=== PATIENT | male | born 1950 | race Caucasian/White ===

== ENCOUNTER → 2017-11-02 | Outpatient (CLI) | payer MEDICARE ==
[2017-11-02 11:14] LABS: Basophils # (A) 0.1 k/uL (0-0.2); Basophils % (A) 1 %; Eosinophils # (A) 0.2 k/uL (0-0.7); Eosinophils % (A) 3 %; HCT 48.1 % (39.0-53.0); HGB 16.2 gm/dL (13.0-17.5); Lymphocytes # (A) 1.4 k/uL (1.0-4.8); Lymphocytes % (A) 20 %; MCH 29.2 pg (25.0-35.0); MCHC 33.7 g/dL (31.0-37.0); MCV 86.5 fL (80.0-100.0); Mean Platelet Volume 6.5; Monocytes # (A) 0.5 k/uL (0-1.0); Monocytes % (A) 7 %; Neutrophils # (A) 4.5 k/uL (1.3-7.7); Neutrophils % (A) 66 %; Platelet Count 215 k/uL (150-450); RBC 5.57 m/uL (4.30-5.90); RDW 13.3 % (11.5-15.5); WBC 6.8 k/uL (3.8-10.6)
[2017-11-02 11:27] LABS: Potassium 5.2 mmol/L (3.5-5.1)
[2017-11-02 11:38] LABS: Appearance,Urine Clear (Clear); Bilirubin,Urine Negative (Negative); Blood,Urine Negative (Negative); Color,Urine Light Yellow; Glucose,Urine (UA) Negative (Negative); Ketones,Urine Negative (Negative); Leukocyte Esterase,Urine Negative (Negative); Nitrite,Urine Negative (Negative); Protein,Urine Negative (Negative); Specific Gravity,Urine 1.011 (1.001-1.035); Urobilinogen,Urine <2.0 mg/dL (<2.0)
[2017-11-02 12:11] LABS: INR 1.1 (<1.2); Partial Thromboplastin Time 22.5 sec (22.0-30.0); Prothrombin Time 10.4 sec (9.0-12.0)
== END | disposition home or self-care (01) ==
LOC: LABPAT 09:56
PROVIDERS: ATTEND Surgery
DX: Z01.812 Encounter for preprocedural laboratory examination (principal); Z51.81 Encounter for therapeutic drug level monitoring; Z79.01 Long term (current) use of anticoagulants; M79.605 Pain in left leg
CPT/HCPCS: 36415; 80051; 81003; 82947; 85025; 85610; 85730

== ENCOUNTER → 2017-11-07 | Day surgery (SDC) | payer MEDICARE ==
[2017-11-02 17:07] VITALS: BMI 27.4
[~2017-11-07] MED LIST: ASPIRIN 325 MG TAB PO STA; HYDROcodone/APAP 5-325MG 1 EACH TAB PO PRN; IODIXANOL 320 MG/ML 100 ML INTRAARTER ONE; LIDOCAINE 2% INJ 20 MG/ML SQ ONE; MIDAZOLAM 2 MG/2 ML VIAL IVP ONE; SODIUM CHLORIDE 0.9% 1,000 ML in EMPTY BAG 1 BAG IV ONE; ZOLPIDEM 5 MG TAB PO PRN; fentaNYL (PF) 50 MCG/ML 2 ML AMP IVP ONE
[2017-11-07 08:47] VITALS: TEMP 97.8
[2017-11-07 11:45] VITALS: RESP 16
--- NOTE | 2017-11-07 12:15 | P.OP ---
Date of Procedure: 11/07/17 Preoperative Diagnosis: Disabiling claudication with rest pain CLI Postoperative Diagnosis: CLI Occluded Left limb of aortobifemoral graft Occluded Fem-fem bypass graft [employer] of Right SFA with reconstitution at above knee popliteal artery [employer]ENT of Left SFA, popliteal, anterior tibial and peroneal arteries Procedure(s) Performed: Aortogram with bilateral lower extremity runoffs via left brachial artery under ultrasound guidance Implants: none Anesthesia: local Surgeon: Yuriy Whalen Estimated Blood Loss (ml): 5 Pathology: none sent Condition: stable Disposition: same day Indications for Procedure: 67-year-old gentleman who presented originally to the office with left lower extremity pain, numbness. He does have a history of aortobifemoral bypass as well as a femoral to femoral artery bypass secondary to occlusion of his left aortobifemoral limb. He underwent arterial Doppler with ABIs which measured 0.29 on the left lower extremity. He presents today for aortogram with bilateral lower extremity runoffs via his left brachial artery in order to further delineate his arterial disease for future procedure. Operative Findings: Aorta: Occluded just distal to the renal arteries with previous aortobifemoral bypass graft in place. The left iliac limb of the aortobifemoral bypass graft is occluded. Iliac: Bilateral common iliac, internal and external iliac arteries are occluded. Femoral: Right common femoral, deep femoral arteries are patent with moderate at the stenotic disease. The SFA on the right is occluded at the takeoff and reconstitutes at the above-knee popliteal just distal to Mahesh's canal. The left common femoral, superficial femoral arteries are occluded. There is scant flow within the profundus from collateralization. Popliteal: Right popliteal artery is patent. Left popliteal artery is occluded to the below-knee TPT. TPT: Right lower extremity has patent TPT and three-vessel runoff with 2 vessels to the ankle. All vessels are atherosclerotic. Left TPT is occluded as well as the anterior tibial and peroneal vessels. There is scant flow noted in the posterior tibial artery to the ankle. Description of Procedure: After written informed consent was obtained the patient all risks benefits, patient prescribed patient is brought to the Resolution Manager laid in a supine position with his left arm outstretched on an armboard. The area of the left arm was prepped and draped in usual sterile fashion. Utilizing ultrasound the brachial artery was visualized and shown to be patent without any significant disease. Multipurpose needle and Seldinger technique was then used to place a 5-Romanian sheath in normal fashion. 035 Glidewire was then placed into the descending aorta followed by a pigtail catheter. Pigtail catheter was then utilized a 4 aortogram as well as bilateral lower extremity runoffs. All guidewires and catheters were then removed sheath was removed and pressure was placed for hemostasis. Hemostasis was ensured. The area was cleansed and dressings were placed patient on procedure well sent to PACU for recovery. Plan - Discharge Summary Discharge Rx Participant: Yes New Discharge Prescriptions: No Action Nitroglycerin Sl Tabs [Nitrostat] 0.4 mg SUBLINGUAL Q5M PRN PRN Reason: Chest Pain Losartan Potassium 100 mg PO DAILY Clopidogrel [Plavix] 75 mg PO DAILY Spironolactone [Aldactone] 25 mg PO DAILY Metoprolol Tartrate [Lopressor] 50 mg PO BID Aspirin 81 mg PO HS Discharge Medication List Aspirin 81 mg PO HS 11/27/15 [History] Clopidogrel [Plavix] 75 mg PO DAILY 11/27/15 [History] Losartan Potassium 100 mg PO DAILY 11/27/15 [History] Metoprolol Tartrate [Lopressor] 50 mg PO BID 11/27/15 [History] Nitroglycerin Sl Tabs [Nitrostat] 0.4 mg SUBLINGUAL Q5M PRN 11/27/15 [History] Spironolactone [Aldactone] 25 mg PO DAILY 11/27/15 [History] Follow up Appointment(s)/Referral(s): Yuriy Whalen DO [STAFF PHYSICIAN] - 1 Week Discharge Disposition: HOME SELF-CARE
--- NOTE | 2017-11-07 14:44 | IR ---
EXAMINATION TYPE: IR angio abdominal w runoff DATE OF EXAM: 11/07/2017 CLINICAL HISTORY: Left foot pain. TECHNIQUE: Fluoroscopy. COMPARISON: None. FINDINGS: Fluoroscopic guidance was provided during abdominal angiogram with lower extremity runoff procedure performed by Dr. Whalen. A total of 1.5 minutes of fluoroscopic time was utilized during the procedure and 6 exposure images are acquired. Images acquired show access via right groin with s ubsequent abdominal angiogram and lower extremity runoff performed. Please refer to procedure note fo r further details as I was not present nor performed procedure. IMPRESSION: As Above.
[2017-11-07 15:52] VITALS: BP 142/74; PULSE 62
== END | disposition home or self-care (01) ==
LOC: CATHCVL 08:26
PROVIDERS: ATTEND Surgery
DX: I70.422 Atherosclerosis of autologous vein bypass graft(s) of the extremities with rest pain, left leg (principal); I70.0 Atherosclerosis of aorta; I70.223 Atherosclerosis of native arteries of extremities with rest pain, bilateral legs; Z87.891 Personal history of nicotine dependence; I25.10 Atherosclerotic heart disease of native coronary artery without angina pectoris; I11.9 Hypertensive heart disease without heart failure; E78.5 Hyperlipidemia, unspecified; Z79.02 Long term (current) use of antithrombotics/antiplatelets; Z79.82 Long term (current) use of aspirin; Z79.899 Other long term (current) drug therapy; Z88.8 Allergy status to other drugs, medicaments and biological substances
CPT/HCPCS: 36200; 75625; 75716; C1769 ×5; C1894; J2001; J2250; Q9967; J3010; 86850; 86900; 86901

== ENCOUNTER → 2017-11-15 | Outpatient (CLI) | payer MEDICARE ==
[2017-11-15 16:48] LABS: Basophils # (A) 0.1 k/uL (0-0.2); Basophils % (A) 1 %; Eosinophils # (A) 0.3 k/uL (0-0.7); Eosinophils % (A) 4 %; HCT 47.4 % (39.0-53.0); HGB 15.8 gm/dL (13.0-17.5); Lymphocytes # (A) 2.2 k/uL (1.0-4.8); Lymphocytes % (A) 32 %; MCH 29.1 pg (25.0-35.0); MCHC 33.3 g/dL (31.0-37.0); MCV 87.3 fL (80.0-100.0); Mean Platelet Volume 7.3; Monocytes # (A) 0.6 k/uL (0-1.0); Monocytes % (A) 9 %; Neutrophils # (A) 3.5 k/uL (1.3-7.7); Neutrophils % (A) 51 %; Platelet Count 235 k/uL (150-450); RBC 5.43 m/uL (4.30-5.90); RDW 13.7 % (11.5-15.5); WBC 6.9 k/uL (3.8-10.6)
[2017-11-15 16:49] LABS: Appearance,Urine Clear (Clear); Bilirubin,Urine Negative (Negative); Blood,Urine Negative (Negative); Color,Urine Light Yellow; Glucose,Urine (UA) Negative (Negative); Ketones,Urine Negative (Negative); Leukocyte Esterase,Urine Negative (Negative); Nitrite,Urine Negative (Negative); PH, Urine 6.5 (5.0-8.0); Protein,Urine Negative (Negative); Specific Gravity,Urine 1.008 (1.001-1.035); Urobilinogen,Urine <2.0 mg/dL (<2.0)
[2017-11-15 16:56] LABS: INR 1.1 (<1.2); Partial Thromboplastin Time 22.4 sec (22.0-30.0); Prothrombin Time 10.5 sec (9.0-12.0)
[2017-11-15 16:59] LABS: Potassium 5.2 mmol/L (3.5-5.1)
== END | disposition home or self-care (01) ==
LOC: LABWHC1 16:31
PROVIDERS: ATTEND Surgery
DX: Z01.812 Encounter for preprocedural laboratory examination (principal); I70.402 Unspecified atherosclerosis of autologous vein bypass graft(s) of the extremities, left leg
CPT/HCPCS: 36415; 80051; 81003; 82565; 84520; 85025; 85610; 85730; 86850; 86900; 86901

== ENCOUNTER 2017-11-21 05:41 | Inpatient (IN) | payer MEDICARE ==
[2017-11-16 11:31] VITALS: BMI 27.4
[~2017-11-21 05:41] MED LIST changes: -ASPIRIN 325 MG TAB PO STA; +DEXAMETHASONE SOD PHOSPHATE 10 MG/ML 1 ML VIAL IV ONE; -HYDROcodone/APAP 5-325MG 1 EACH TAB PO PRN; +HYDROmorphone 0.5 MG/0.5 ML SYRINGE IVP PRN; -IODIXANOL 320 MG/ML 100 ML INTRAARTER ONE; +LIDOCAINE 1% 20 ML VIAL (10MG/ML) FOR IV START INTRADERMA PRN; -LIDOCAINE 2% INJ 20 MG/ML SQ ONE; +MIDAZOLAM 2 MG/2 ML VIAL IV PRN; -MIDAZOLAM 2 MG/2 ML VIAL IVP ONE; +MORPHINE SULFATE 2 MG/ML SYRINGE IV PRN; +ONDANSETRON ODT 4 MG TAB PO ONE; +SCOPOLAMINE 1.5MG/72HR PATCH TRANSDERM ONE; -SODIUM CHLORIDE 0.9% 1,000 ML in EMPTY BAG 1 BAG IV ONE; -ZOLPIDEM 5 MG TAB PO PRN; +ceFAZolin IN SWFI 2 GM/20 ML SYRINGE IVP ONE; -fentaNYL (PF) 50 MCG/ML 2 ML AMP IVP ONE
[2017-11-21] MEDS: LACTATED RINGERS 1,000 ML IV SCH ×2 (06:57→13:57)
[2017-11-21] MEDS ORDERED: SODIUM CHLORIDE 0.9% 500 ML with HEPARIN SODIUM,PORCINE 5,000 UNIT IV ONE ×2 (08:17)
[2017-11-21] MEDS ORDERED: LACTATED RINGERS 1,000 ML IV ONE ×2 (09:00)
[2017-11-21] MEDS ORDERED: GELATIN SPONGE,ABSORB (LARGE) 1 EACH SPONGE MISCELLANE ONE ×2 (10:53→11:15)
[2017-11-21] MEDS ORDERED: THROMBIN (BOVINE) 5,000 UNIT VIAL MISCELLANE ONE ×2 (10:53→11:15)
[2017-11-21] MEDS ORDERED: HYDROcodone/APAP 5-325MG 1 EACH TAB PO PRN (11:41)
[2017-11-21] MEDS ORDERED: ONDANSETRON 4 MG/2 ML VIAL IVP PRN (11:41)
[2017-11-21] MEDS ORDERED: MORPHINE SULFATE 4 MG/ML SYRINGE IVP PRN (11:41)
[2017-11-21] MEDS: DEXTROSE 5%-0.45% NACL 1,000 ML IV SCH (17:10)
[2017-11-21] MEDS ORDERED: NITROGLYCERIN SL TABS 0.4 MG TAB SUBLINGUAL PRN (18:37)
--- NOTE | 2017-11-21 18:48 | P.CONS ---
History of Present Illness - Reason for Consult Recommendations regarding antihypertensive medications. - History of Present Illness As a pleasant 67-year-old gentleman admitted for fem-fem bypass successfully underwent surgery. Patient denied any fever chills nausea vomiting patient to did take all his medications including losartan and and metoprolol at home. Patient has history of coronary artery disease in the past had stents that were placed in 2001. Denied any fever chills dysuria nausea vomiting received perioperative antibiotics. Review of Systems REVIEW OF SYSTEMS: CONSTITUTIONAL: No fever, no malaise, no fatigue. HEENT: No recent visual problems or hearing problems. Denied any sore throat. CARDIOVASCULAR: No chest pain, orthopnea, PND, no palpitations, no syncope. PULMONARY: No shortness of breath, no cough, no hemoptysis. GASTROINTESTINAL: No diarrhea, no nausea, no vomiting, no abdominal pain. Normoactive bowel sounds. NEUROLOGICAL: No headaches, no weakness, no numbness. HEMATOLOGICAL: Denies any bleeding or petechiae. GENITOURINARY: Denies any burning micturition, frequency, or urgency. MUSCULOSKELETAL/RHEUMATOLOGICAL: Denies any joint pain, swelling, or any muscle pain. ENDOCRINE: Denies any polyuria or polydipsia. The rest of the 14-point review of systems is negative. Past Medical History Past Medical History: GERD/Reflux, Hearing Disorder / Deafness, Sleep Apnea/CPAP /BIPAP Additional Past Medical History / Comment(s): SEE DR ELLIS'S H&P, FATTY LIVER, History of Any Multi-Drug Resistant Organisms: None Reported Past Surgical History: AICD, Heart Catheterization With Stent Additional Past Surgical History / Comment(s): fem/fem bypass, AAA repair, recent aortogram Past Anesthesia/Blood Transfusion Reactions: No Reported Reaction Date of Last Stent Placement:: 01/2002 Type of Cardiac Device: AICD Device Placement Date:: 04/01 Smoking Status: Former smoker - Past Family History Mother Family Medical History: Cancer Sister(s) Family Medical History: Cancer Additional Family Medical History / Comment(s): BREAST CANCER Medications and Allergies Home Medications Medication Instructions Recorded Confirmed Type Aspirin 81 mg PO HS 11/27/15 11/21/17 History Clopidogrel [Plavix] 75 mg PO DAILY 11/27/15 11/21/17 History Losartan Potassium 100 mg PO DAILY 11/27/15 11/21/17 History Metoprolol Tartrate [Lopressor] 50 mg PO BID 11/27/15 11/21/17 History Nitroglycerin Sl Tabs [Nitrostat] 0.4 mg SUBLINGUAL Q5M PRN 11/27/15 11/21/17 History Spironolactone [Aldactone] 25 mg PO DAILY 11/27/15 11/21/17 History Allergies Allergy/AdvReac Type Severity Reaction Status Date / Time CYRUS Inhibitors AdvReac Cough Verified 11/21/17 16:19 Bgbvvon-[id number]-Ele Reductase AdvReac fatty liver Verified 11/21/17 16:19 Inhibitor Physical Exam Vitals: Vital Signs Temp Pulse Resp BP BP Pulse Ox 11/21/17 16:40 97.5 F L 104 H 16 108/59 95 11/21/17 16:00 105 H 16 119/57 97 11/21/17 15:45 98 16 117/63 97 11/21/17 15:30 96 16 121/70 97 11/21/17 15:15 97 16 121/69 97 11/21/17 15:00 102 H 16 123/70 95 11/21/17 14:45 98 16 120/66 95 11/21/17 14:30 92 16 112/61 96 11/21/17 14:15 78 16 119/66 94 L 11/21/17 14:00 91 16 116/57 95 11/21/17 13:45 102 H 16 116/63 96 11/21/17 13:30 98 16 108/59 98 11/21/17 13:15 90 16 122/61 96 11/21/17 13:00 95 16 122/60 95 11/21/17 12:46 97 16 127/63 92 L 11/21/17 12:32 103 H 16 143/69 100 11/21/17 12:16 95 16 132/65 99 11/21/17 12:00 105 H 16 133/70 99 11/21/17 11:46 98.0 F 100 16 117/63 98 11/21/17 06:39 98.0 F 66 16 129/77 95 Intake and Output 11/21/17 11/21/17 11/21/17 06:59 14:59 22:59 Intake Total 2201 60 Output Total 1240 700 Balance 961 -640 Intake: IV 2201 Oral 60 Output: Urine 1200 700 Estimated Blood Loss 40 Other: Voiding Method Indwelling Catheter # Voids 0 PHYSICAL EXAMINATION: GENERAL: The patient is alert and oriented x3, not in any acute distress. Well developed, well nourished. HEENT: Pupils are round and equally reacting to light. EOMI. No scleral icterus. No conjunctival pallor. Normocephalic, atraumatic. No pharyngeal erythema. No thyromegaly. CARDIOVASCULAR: S1 and S2 present. No murmurs, rubs, or gallops. PULMONARY: Chest is clear to auscultation, no wheezing or crackles. ABDOMEN: Soft, nontender, nondistended, normoactive bowel sounds. No palpable organomegaly. MUSCULOSKELETAL: No joint swelling or deformity. EXTREMITIES: No cyanosis, clubbing, or pedal edema. NEUROLOGICAL: Gross neurological examination did not reveal any focal deficits. SKIN: No rashes. Results CBC & Chem 7: 11/21/17 06:56 Assessment and Plan Plan: Fem-fem bypass, pain management as per primary service and antiplatelet therapy as per primary service patient is on aspirin not on Plavix at this time. -Hypertension: Metoprolol and losartan will be resumed. -Coronary artery disease -Hyperlipidemia -Sleep apnea and uses CPAP machine.
[2017-11-21] MEDS: METOPROLOL TARTRATE 50 MG TAB PO SCH (21:13)
--- NOTE | 2017-11-21 21:33 | P.OP ---
Date of Procedure: 11/21/17 Preoperative Diagnosis: Left lower extremity disabiling claudication Mobile 4 Femoral-Femoral artery bypass graft occlusion Postoperative Diagnosis: same Procedure(s) Performed: Femoral-Profundus Femoral artery bypass graft revision Implants: [place] 6mm PTFE graft Anesthesia: ADONIS Surgeon: Yuriy Whalen Paper Plate Machine Tender #1: Macho Farooq Estimated Blood Loss (ml): 50 Pathology: none sent Condition: stable Disposition: floor Indications for Procedure: 67 year-old male with history of aortic graft and femoral-femoral artery bypass presented to the office with complaints of worsening pain in his left lower extremity. Ultrasound demonstrated an occluded bypass graft with severe left lower extremity arterial occlusive disease. He underwent angiogram which demonstrated occluded graft with only collateralization to the posterior tibial artery. He had developed rest pain and presents today for revision of his bypass graft. Operative Findings: Occluded femoral-femoral artery bypas Description of Procedure: After written and informed consent was obtained from the patient and all risks, benefits, and complications were described the patient was brought to the operating room and laid in a supine position. The abdomen and groins were prepped and draped in the usual sterile fashion after anesthesia was administered per anesthesiology. A time-out was performed in usual manner with all parties in agreement. Antibiotics were administered prior to any incision. Bilateral oblique incisions were made at the groin region with a 10 blade scalpel and dissection was carried down to the existing femoral artery bypass graft. Meticulous dissection was performed and the femoral artery was dissected in a circumferential manner. Control was obtained of the proximal femoral, profunda and superficial femoral artery bilaterally with vessel loops. Once controlled, a 6mm [place] ringed straight graft was chosen and it was tunneled between each groin. Patient was administered 5000 units of heparin and once allowed to circulate the vessels were clamped. The existing graft was cut and removed partially from the femoral vessels. The right side of the graft was ligated just distal to the previous anastomosis. The left side of the graft was dissected to the previous anastomosis and excised from the profunda artery. Thrombus and plaque were then removed and back-bleeding was assessed. Good back-bleeding was noted from the profunda on the left. The PTFE graft was spatulated and an end to side anastomosis with 6-0 prolene was performed in usual fashion to the profunda femoral artey on the left. Once completed an end to end anastomosis was created on the right side with the existing graft. All control was then released and there was a palpable pulse distal to the bypass graft. Both incision sites were cleansed with antibiotic solution and hemostasis was assisted with gelfoam and thrombin. Once hemostatic the incisions were closed in a multilayer fashion. Prevena skin VAC' s were placed on bilateral surgical sites. The patient tolerated the procedure well and had monophasic signals on bilateral lower extremities. He was sent PACU for recover.
[2017-11-22] MEDS: DEXTROSE 5%-0.45% NACL 1,000 ML IV SCH (05:17)
[2017-11-22 07:17] LABS: Basophils % (A) 0 %; Eosinophils # (A) 0.1 k/uL (0-0.7); Eosinophils % (A) 1 %; HCT 42.2 % (39.0-53.0); HGB 14.1 gm/dL (13.0-17.5); Lymphocytes # (A) 1.8 k/uL (1.0-4.8); Lymphocytes % (A) 15 %; MCH 28.8 pg (25.0-35.0); MCHC 33.3 g/dL (31.0-37.0); MCV 86.5 fL (80.0-100.0); Monocytes # (A) 1.4 k/uL (0-1.0); Monocytes % (A) 12 %; Neutrophils # (A) 8.3 k/uL (1.3-7.7); Neutrophils % (A) 70 %; Platelet Count 212 k/uL (150-450); RBC 4.88 m/uL (4.30-5.90)
[2017-11-22 07:42] LABS: Anion Gap 11 mmol/L; Blood Urea Nitrogen 16 mg/dL (9-20); Calcium 8.9 mg/dL (8.4-10.2); Carbon Dioxide 26 mmol/L (22-30); Chloride 104 mmol/L (98-107); Glucose 113 mg/dL (74-99); Potassium 4.1 mmol/L (3.5-5.1); Sodium 141 mmol/L (137-145)
[2017-11-22] MEDS ORDERED: MORPHINE ORAL SOLN 10 MG/5 ML CUP PO PRN (08:29)
[2017-11-22] MEDS: METOPROLOL TARTRATE 50 MG TAB PO SCH ×2 (08:32→21:45)
[2017-11-22] MEDS: DOCUSATE 100 MG CAP PO SCH (08:32)
[2017-11-22] MEDS: LOSARTAN 50 MG TAB PO SCH (08:32)
[2017-11-22] MEDS: ASPIRIN 325 MG TAB PO SCH (08:32)
[2017-11-22] MEDS: CLOPIDOGREL 75 MG TAB PO SCH (08:35)
--- NOTE | 2017-11-22 08:41 | P.PN ---
Progress Note - Text Progress Note Date: 11/22/17 Subjective: Patient states that his leg feels significantly better than prior to surgery. Objective: Left foot and warmer than right. Groin incisions clean and dry. Vital signs stable, afebrile. Assessment: Good first day post redo fem-fem bypass. Plan: Discussed with the patient current status. Increase activities. Probable discharge tomorrow.
--- NOTE | 2017-11-22 11:03 | P.CRDCN ---
History of Present Illness Consult date: 11/22/17 Reason for Consult (text): Postop cardiac evaluation History of present illness: This patient is seen in postop period for cardiac evaluation. Cussed the patient's condition with the vascular surgeon during the surgery initially patient had some episodes of bradycardia and intermittent PVCs. The patient of course remains stable during the surgery and problems with the blood pressure was noted during surgery and is now comfortable and denies any respiratory distress or chest pain patient has a history of ischemic cardiomyopathy with prior myocardial infarction and AICD placement has remained stable as an outpatient in functional class III. PVCs are noted on a telemetry bed Past Medical History Past Medical History: GERD/Reflux, Hearing Disorder / Deafness, Sleep Apnea/CPAP /BIPAP Additional Past Medical History / Comment(s): SEE DR ELLIS'S H&P, FATTY LIVER, History of Any Multi-Drug Resistant Organisms: None Reported Past Surgical History: AICD, Heart Catheterization With Stent Additional Past Surgical History / Comment(s): fem/fem bypass, AAA repair, recent aortogram Past Anesthesia/Blood Transfusion Reactions: No Reported Reaction Date of Last Stent Placement:: 01/2002 Type of Cardiac Device: AICD Device Placement Date:: 04/01 Smoking Status: Former smoker - Past Family History Mother Family Medical History: Cancer Sister(s) Family Medical History: Cancer Additional Family Medical History / Comment(s): BREAST CANCER Medications and Allergies Home Medications Medication Instructions Recorded Confirmed Type Aspirin 81 mg PO HS 11/27/15 11/21/17 History Clopidogrel [Plavix] 75 mg PO DAILY 11/27/15 11/21/17 History Losartan Potassium 100 mg PO DAILY 11/27/15 11/21/17 History Metoprolol Tartrate [Lopressor] 50 mg PO BID 11/27/15 11/21/17 History Nitroglycerin Sl Tabs [Nitrostat] 0.4 mg SUBLINGUAL Q5M PRN 11/27/15 11/21/17 History Spironolactone [Aldactone] 25 mg PO DAILY 11/27/15 11/21/17 History Allergies Allergy/AdvReac Type Severity Reaction Status Date / Time CYRUS Inhibitors AdvReac Cough Verified 11/21/17 16:19 Zjhqhwu-Dgk-Gdr Reductase AdvReac fatty liver Verified 11/21/17 16:19 Inhibitor Physical Exam Vitals: Vital Signs Temp Pulse Resp BP BP BP Pulse Ox 11/22/17 08:00 70 20 11/22/17 04:00 98.4 F 98 24 137/81 95 11/22/17 00:00 84 14 115/55 94 L 11/21/17 20:00 112 H 18 97/54 93 L 11/21/17 19:00 96 16 105/62 94 L 11/21/17 16:40 97.5 F L 104 H 16 108/59 95 11/21/17 16:00 105 H 16 119/57 97 11/21/17 15:45 98 16 117/63 97 11/21/17 15:30 96 16 121/70 97 11/21/17 15:15 97 16 121/69 97 11/21/17 15:00 102 H 16 123/70 95 11/21/17 14:45 98 16 120/66 95 11/21/17 14:30 92 16 112/61 96 11/21/17 14:15 78 16 119/66 94 L 11/21/17 14:00 91 16 116/57 95 11/21/17 13:45 102 H 16 116/63 96 11/21/17 13:30 98 16 108/59 98 11/21/17 13:15 90 16 122/61 96 11/21/17 13:00 95 16 122/60 95 11/21/17 12:46 97 16 127/63 92 L 11/21/17 12:32 103 H 16 143/69 100 11/21/17 12:16 95 16 132/65 99 11/21/17 12:00 105 H 16 133/70 99 11/21/17 11:46 98.0 F 100 16 117/63 98 Intake and Output 11/21/17 11/22/17 11/22/17 22:59 06:59 14:59 Intake Total 360 480 Output Total 1400 1 Balance -1040 479 Intake: Intake, IV Titration 480 Amount Dextrose 5%-0.45% NaCl 1, 480 000 ml @ 60 mls/hr IV . [id number] [facility] Rx#:[id number] Oral 360 Output: Urine 1400 0 Stool 1 Other: Voiding Method Indwelling Catheter Indwelling Catheter Indwelling Catheter # Voids 0 0 # Bowel Movements 0 0 Weight 65.5 kg Patient's vital signs are reviewed. The patient is alert awake and in no acute distress. HEENT negative. Neck-supple no increase in JVP noted no carotid bruits noted. Chest-symmetrical. Heart-first and second heart sounds are normal. No S3 or S4 is noted. No significant murmurs are noted. Lungs bilateral good at entry is noted. No rales or rhonchi are noted Abdomen-soft. Liver and spleen are not enlarged. The bowel sounds are normal. No tenderness noted Extremities-peripheral pulses since are 2+. No significant leg edema noted. Neuro-no significant gross abnormality noted. Results 11/22/17 07:01 11/22/17 07:01 CBC 11/22/17 Range/Units 07:01 WBC 12.0 H (3.8-10.6) k/uL RBC 4.88 (4.30-5.90) m/uL Hgb 14.1 (13.0-17.5) gm/dL Hct 42.2 (39.0-53.0) % Plt Count 212 (150-450) k/uL Comprehensive Metabolic Panel 11/22/17 Range/Units 07:01 Sodium 141 (137-145) mmol/L Potassium 4.1 (3.5-5.1) mmol/L Chloride 104 (98-107) mmol/L Carbon Dioxide 26 (22-30) mmol/L BUN 16 (9-20) mg/dL Creatinine 0.84 (0.66-1.25) mg/dL Glucose 113 H (74-99) mg/dL Calcium 8.9 (8.4-10.2) mg/dL Current Medications Generic Name Dose Route Start Last Admin Trade Name Freq PRN Reason Stop Dose Admin Hydrocodone Bitart/Acetaminophen 2 each 11/21/17 11:41 [place] 5-325 PO Q4HR PRN Pain Scale 8 to 10 Aspirin 325 mg 11/22/17 09:00 11/22/17 08:32 Aspirin PO 325 mg DAILY [facility] Administration Clopidogrel Bisulfate 75 mg 11/22/17 09:00 11/22/17 08:35 Plavix PO 75 mg DAILY [facility] Administration Docusate Sodium 100 mg 11/22/17 09:00 11/22/17 08:32 Colace PO 100 mg DAILY [facility] Administration Lidocaine HCl 0.1 ml 11/21/17 05:22 11/21/17 06:57 .Xylocaine 1% Inj (10mg/Ml) For Iv Start INTRADERMA 0.1 ml PER PROTOCOL PRN Administration IV Start Losartan Potassium 100 mg 11/22/17 09:00 11/22/17 08:32 Cozaar PO 100 mg DAILY [facility]NER Administration Metoprolol Tartrate 50 mg 11/21/17 21:00 11/22/17 08:32 Lopressor PO 50 mg BID [facility]NER Administration Morphine Sulfate 6 mg 11/22/17 08:29 Morphine Oral Nelda 2mg/Ml PO Q1HR PRN Mild Pain Nitroglycerin 0.4 mg 11/21/17 18:37 Nitrostat SUBLINGUAL Q5M PRN Chest Pain Ondansetron HCl 4 mg 11/21/17 11:41 Zofran IVP Q6HR PRN Nausea And Vomiting Intake and Output 11/21/17 11/22/17 11/22/17 22:59 06:59 14:59 Intake Total 360 480 Output Total 1400 1 Balance -1040 479 Intake: Intake, IV Titration 480 Amount Dextrose 5%-0.45% NaCl 1, 480 000 ml @ 60 mls/hr IV . [id number] [facility] Rx#:[id number] Oral 360 Output: Urine 1400 0 Stool 1 Other: Voiding Method Indwelling Catheter Indwelling Catheter Indwelling Catheter # Voids 0 0 # Bowel Movements 0 0 Weight 65.5 kg 11/22/17 07:01 11/22/17 07:01 EKG Interpretations (text) EKG shows normal sinus rhythm without any acute ischemic changes telemetr strips are reviewed. Occasional PVCs are noted Assessment and Plan Assessment: This patient is status post surgery for a fem-fem surgery. He is stable cardiac -carrillo his blood pressure is normal Patient's vital signs are reviewed.
[2017-11-23 05:12] VITALS: RESP 16
--- NOTE | 2017-11-23 08:25 | P.PN ---
Subjective Progress Note Date: 11/23/17 Principal diagnosis: Left lower extremity claudication with rest pain and occluded fem-fem bypass Patient doing well. States pain is much improved since surgery. Ambulated down hallway with minimal discomfort. Tolerating diet well. No complaints currently. Denies fevers, chills, nausea, vomiting, chest pain or shortness of breath. Objective - Vital Signs Vital signs: Vital Signs Temp 98.7 F 11/23/17 04:00 Pulse 90 11/23/17 04:00 Resp 16 11/23/17 04:00 BP 126/63 11/23/17 04:00 Pulse Ox 96 11/23/17 04:00 Intake & Output 11/22/17 11/23/17 11/23/17 18:59 06:59 18:59 Intake Total 480 600 240 Output Total 600 604 Balance -120 -4 240 Weight 68.8 kg Intake: Intake, IV Titration 0 Amount Dextrose 5%-0.45% NaCl 1, 0 000 ml @ 60 mls/hr IV . [id number] [facility] Rx#:[id number] Oral 480 600 240 Output: Urine 600 600 Stool 4 Other: Voiding Method Indwelling Catheter Indwelling Catheter # Voids 0 # Bowel Movements 0 - Exam Bilateral groin Vac dressings intact. +doppler signal bilateral DP, PT. Left foot is warm. No tenderness at calf regions. Good capillary refill. Right foot is slightly cooler than left but no discomfort per patient. - Labs CBC & Chem 7: 11/22/17 07:01 11/22/17 07:01 Assessment and Plan Assessment: 1. Fem-Fem bypass occlusion s/p revision 2. Left lower extremity claudication with rest pain- improved Plan: Maintain Vac dressings to bilateral groins. Discussed way to shower with dressings in place. Will need to be removed Monday. Continue daily aspirin and plavix. Ok to discharge home if cleared per medicine and cardio team. Time with Patient: Less than 30
[2017-11-23] MEDS: ASPIRIN 325 MG TAB PO SCH (09:27)
[2017-11-23] MEDS: CLOPIDOGREL 75 MG TAB PO SCH (09:28)
[2017-11-23] MEDS: LOSARTAN 50 MG TAB PO SCH (09:28)
[2017-11-23] MEDS: METOPROLOL TARTRATE 50 MG TAB PO SCH (09:28)
[2017-11-23] MEDS: DOCUSATE 100 MG CAP PO SCH (09:28)
[2017-11-23 09:38] VITALS: PULSE 88
[2017-11-23 09:41] VITALS: BP 90/54; TEMP 98.5
--- NOTE | 2017-11-23 21:22 | P.DS ---
Providers Date of admission: 11/21/17 05:41 Expected date of discharge: 11/23/17 Attending physician: Yuriy Whalen DO Consults: 11/21/17 11:41 Consult Physician Routine Consulting Provider: Angel Werner Consult Reason/Comments: medical management Do you want consulting provider notified?: Yes 11/21/17 11:48 Consult Physician Routine Consulting Provider: Radha Forrest Consult Reason/Comments: bradycardia Do you want consulting provider notified?: Yes 11/21/17 11:49 Consult Physician Routine Consulting Provider: Macho Farooq Consult Reason/Comments: surgical management Do you want consulting provider notified?: Yes Primary care physician: Brittany Antony - Discharge Diagnosis(es) (1) Claudication in peripheral vascular disease Status: Acute Priority: High (2) Rest pain of left lower extremity concurrent with and due to atherosclerosis of bypass graft Status: Acute Priority: High Hospital Course: Patient had femoral-femoral artery bypass revision and was admitted to the hospital. He was seen by cardio and IM for blood pressure and bradycardia. Patient was tolerating diet, ambulating in the hallway and pain was controlled. He was stable for discharge 11/23/17 and was discharged home with home care. Procedures: fem-fem artery bypass revision Patient Condition at Discharge: Stable Plan - Discharge Summary Discharge Rx Participant: Yes New Discharge Prescriptions: No Action Nitroglycerin Sl Tabs [Nitrostat] 0.4 mg SUBLINGUAL Q5M PRN PRN Reason: Chest Pain RX: Losartan Potassium 100 mg PO DAILY Clopidogrel [Plavix] 75 mg PO DAILY Spironolactone [Aldactone] 25 mg PO DAILY Metoprolol Tartrate [Lopressor] 50 mg PO BID RX: Aspirin 81 mg PO HS Discharge Medication List Clopidogrel [Plavix] 75 mg PO DAILY 11/27/15 [History] Metoprolol Tartrate [Lopressor] 50 mg PO BID 11/27/15 [History] Nitroglycerin Sl Tabs [Nitrostat] 0.4 mg SUBLINGUAL Q5M PRN 11/27/15 [History] RX: Aspirin 81 mg PO HS 11/27/15 [History] RX: Losartan Potassium 100 mg PO DAILY 11/27/15 [History] Spironolactone [Aldactone] 25 mg PO DAILY 11/27/15 [History] Follow up Appointment(s)/Referral(s): Yuriy Whalen DO [STAFF PHYSICIAN] - 12/12/17 3:30 pm (MONDAY) Radha Forrest MD [STAFF PHYSICIAN] - 12/22/17 3:15 pm (MONDAY) Macho Farooq DO [Doctor of Osteopathic Medicine] - 11/30/17 9:45 am (MONDAY drains to be removed) Patient Instructions/Handouts: Femoropopliteal Bypass (DC) Discharge Disposition: HOME WITH HOME HEALTH SERVICES
== END 2017-11-23 12:46 | disposition home health service (06) | DRG 254 ==
LOC: 2ORMAIN 05:41 → 6SEL 15:52 → UNDODISIN 19:06
PROVIDERS: ADMIT Surgery; ATTEND Surgery
PROC: 041 Lower Arteries, Bypass (ICD-10-PCS; principal; 2017-11-21 07:30)
DX: I70.312 Atherosclerosis of unspecified type of bypass graft(s) of the extremities with intermittent claudication, left leg (principal); I25.10 Atherosclerotic heart disease of native coronary artery without angina pectoris; K21.9 Gastro-esophageal reflux disease without esophagitis; H91.90 Unspecified hearing loss, unspecified ear; I49.3 Ventricular premature depolarization; K76.0 Fatty (change of) liver, not elsewhere classified; R20.0 Anesthesia of skin; M79.605 Pain in left leg; E78.2 Mixed hyperlipidemia; I25.5 Ischemic cardiomyopathy; G47.30 Sleep apnea, unspecified; Z95.5 Presence of coronary angioplasty implant and graft; Z95.1 Presence of aortocoronary bypass graft; Z95.810 Presence of automatic (implantable) cardiac defibrillator; Z87.891 Personal history of nicotine dependence; Z80.3 Family history of malignant neoplasm of breast; Z79.82 Long term (current) use of aspirin; Z79.02 Long term (current) use of antithrombotics/antiplatelets; Z79.899 Other long term (current) drug therapy; Z88.8 Allergy status to other drugs, medicaments and biological substances; Z86.79 Personal history of other diseases of the circulatory system; Z87.19 Personal history of other diseases of the digestive system; I25.2 Old myocardial infarction; Z82.49 Family history of ischemic heart disease and other diseases of the circulatory system
CPT/HCPCS: 80048; 84132; 85025; 86850; 86900; 86901

== ENCOUNTER → 2018-04-27 | Outpatient (CLI) | payer MEDICARE ==
[2018-04-27 15:15] LABS: HCT 48.9 % (39.0-53.0); HGB 16.1 gm/dL (13.0-17.5); MCH 29.3 pg (25.0-35.0); MCV 88.7 fL (80.0-100.0); Mean Platelet Volume 6.6; Platelet Count 254 k/uL (150-450); RBC 5.51 m/uL (4.30-5.90); RDW 13.7 % (11.5-15.5); WBC 7.3 k/uL (3.8-10.6)
[2018-04-27 15:56] LABS: Anion Gap 9 mmol/L; Blood Urea Nitrogen 20 mg/dL (9-20); Carbon Dioxide 27 mmol/L (22-30); Chloride 104 mmol/L (98-107); Potassium 5.1 mmol/L (3.5-5.1); Sodium 140 mmol/L (137-145)
[2018-04-27 16:19] LABS: Glucose 93 mg/dL (74-99)
== END | disposition home or self-care (01) ==
LOC: LABPAT 12:49
PROVIDERS: ATTEND Internal Medicine Clinical Cardiac Electrophysiology
DX: Z01.812 Encounter for preprocedural laboratory examination (principal); I49.3 Ventricular premature depolarization; I49.01 Ventricular fibrillation; I25.5 Ischemic cardiomyopathy
CPT/HCPCS: 80051; 82565; 82947; 84520; 85027

== ENCOUNTER 2018-05-08 09:34 | Day surgery (SDC) | payer MEDICARE ==
[2018-05-01 15:29] VITALS: BMI 26.5
[~2018-05-08 09:34] MED LIST changes: -DEXAMETHASONE SOD PHOSPHATE 10 MG/ML 1 ML VIAL IV ONE; -HYDROmorphone 0.5 MG/0.5 ML SYRINGE IVP PRN; +LACTATED RINGERS 1,000 ML IV SCH; -LIDOCAINE 1% 20 ML VIAL (10MG/ML) FOR IV START INTRADERMA PRN; -MIDAZOLAM 2 MG/2 ML VIAL IV PRN; -MORPHINE SULFATE 2 MG/ML SYRINGE IV PRN; -ONDANSETRON ODT 4 MG TAB PO ONE; -SCOPOLAMINE 1.5MG/72HR PATCH TRANSDERM ONE; +SODIUM CHLORIDE 0.9% 1,000 ML IV SCH; -ceFAZolin IN SWFI 2 GM/20 ML SYRINGE IVP ONE
[2018-05-08 09:57] VITALS: RESP 20
[2018-05-08] MEDS ORDERED: PROPOFOL 10 MG/ML 20 ML VIAL IV ONE (10:42)
[2018-05-08] MEDS ORDERED: fentaNYL (PF) 50 MCG/ML 2 ML AMP ONE (10:42)
[2018-05-08] MEDS ORDERED: MIDAZOLAM 2 MG/2 ML VIAL ONE (10:42)
--- NOTE | 2018-05-08 11:33 | P.PCN ---
Preoperative Diagnosis: Diagnosis 68-year-old male patient with tachycardia at 205 beats a minute associated with dizziness, intracardiac electrograms suggest a narrow QRS, bundle branch reentry versus septal VT versus supraventricular tachycardia Ischemic cardio myopathy inferior wall [place] Frequent PVCs that inducible atrial fibrillation Severe peripheral vascular disease that precludes retrograde access for the left ventricle Noninvasive program stimulation was performed Ventricular extra stimulation was performed and@600/300/300 ventricular tachycardia at 205 beats a minute was induced. This was his clinical tachycardia. Antitachycardia pacing was successful in terminating the tachycardia Ventricular extra stimulation at short coupling intervals was performed to evaluate the mechanism of the tachycardia but the tachycardia could not be induced consistently. Return cycle 378 ms VT morphology is as follows left bundle branch block morphology with an initial broad R wave followed by a deep S wave, upright QRS in lead V2 and V3 with a delta wave-like configuration with notching, QRS pattern in lead 3 and aVF consistent with an inferior septal exit With ventricular extra stimulation at tighter coupling intervals, right bundle branch block morphology nonsustained runs were induced again with an inferior exit. Return cycle was identical to above at 378 ms ICD was reprogrammed. VT to zone changed to 214 beats a minute Detection intervals of 50 beats a minute in VT 1 zone since this tachycardia makes him dizzy Plan VT ablation via the transseptal route since he has severe peripheral vascular disease It is quite likely that this may be a deep septal focus I will also have access the coronary sinus septal veins for intramyocardial mapping
[2018-05-08 13:28] VITALS: BP 119/67
== END 2018-05-08 13:15 | disposition home or self-care (01) ==
LOC: CATHEP 09:34
PROVIDERS: ATTEND Internal Medicine Clinical Cardiac Electrophysiology
DX: I47.2 Ventricular tachycardia (principal); Z45.02 Encounter for adjustment and management of automatic implantable cardiac defibrillator; I25.5 Ischemic cardiomyopathy; I49.01 Ventricular fibrillation; I49.3 Ventricular premature depolarization; I10 Essential (primary) hypertension; E78.5 Hyperlipidemia, unspecified; Z82.49 Family history of ischemic heart disease and other diseases of the circulatory system; Z87.891 Personal history of nicotine dependence; I25.2 Old myocardial infarction; Z79.02 Long term (current) use of antithrombotics/antiplatelets; Z79.82 Long term (current) use of aspirin; Z79.899 Other long term (current) drug therapy; Z88.8 Allergy status to other drugs, medicaments and biological substances
CPT/HCPCS: 93642; J2250; J3010; J2704

== ENCOUNTER 2018-07-03 06:56 | Day surgery (SDC) | payer MEDICARE ==
[2018-06-28 12:06] VITALS: BMI 27.4
[~2018-07-03 06:56] MED LIST changes: +LIDOCAINE 1% 20 ML VIAL (10MG/ML) FOR IV START INTRADERMA PRN; +MIDAZOLAM (PF) 2 MG/2 ML VIAL IV PRN
[2018-07-03] MEDS ORDERED: ceFAZolin IN SWFI 2 GM/20 ML SYRINGE IVP STA (08:22)
[2018-07-03] MEDS ORDERED: PROTAMINE SULFATE 10 MG/ML 5 ML VIAL IV ONE (08:29)
[2018-07-03] MEDS ORDERED: MIDAZOLAM 2 MG/2 ML VIAL ONE (08:29)
[2018-07-03] MEDS ORDERED: HEPARIN SODIUM,PORCINE 10,000 UNIT/ML 1 ML VIAL ONE (08:29)
[2018-07-03] MEDS ORDERED: PHENYLEPHRINE-0.9% NACL SYG 1 MG/10 ML SYRINGE ONE (08:29)
[2018-07-03] MEDS ORDERED: fentaNYL (PF) 50 MCG/ML 2 ML AMP ONE (08:29)
[2018-07-03] MEDS ORDERED: ISOPROTERENOL 250 MCG/1.25 ML SYR IV ONE (08:29)
[2018-07-03] MEDS ORDERED: PROPOFOL 10 MG/ML 20 ML VIAL IV ONE (08:29)
[2018-07-03] MEDS ORDERED: FUROSEMIDE 10 MG/ML 2 ML VIAL ONE (08:29)
[2018-07-03] MEDS ORDERED: LIDOCAINE 1% INJ 10MG/ML (20 ML MDV) ONE (08:40)
[2018-07-03] MEDS ORDERED: LIDOCAINE 2% INJ 20 MG/ML SQ ONE (09:07)
[2018-07-03] MEDS ORDERED: HEPARIN SOD,PORK IN 0.45% NACL 25,000 UNIT in 0.45% NACL 1 500ML.BAG IV ONE (09:21)
[2018-07-03] MEDS ORDERED: HEPARIN SODIUM (1,000 UNIT/ML) 1,000 UNIT in SODIUM CHLORIDE 0.9% 1,000 ML IRRIGATION ONE (09:22)
[2018-07-03] MEDS ORDERED: SODIUM CHLORIDE 0.9% 500 ML 500 ML IV ONE (13:55)
[2018-07-03] MEDS ORDERED: HYDROcodone/APAP 5-325MG 1 EACH TAB PO PRN (14:26)
[2018-07-03] MEDS ORDERED: ACETAMINOPHEN IV (For NPO) 1,000 MG in EMPTY BAG 1 BAG IVPB ONE (14:26)
[2018-07-03] MEDS ORDERED: ACETAMINOPHEN TAB 325 MG TAB PO PRN (14:26)
[2018-07-03] MEDS ORDERED: FAMOTIDINE 20 MG TAB PO PRN (14:30)
[2018-07-03] MEDS ORDERED: PHENYLEPHRINE 10 MG/ML VIAL IV ONE (15:15)
[2018-07-03 16:28] VITALS: RESP 18
--- NOTE | 2018-07-03 17:25 | PCN ---
PROCEDURE NOTE Mr. Herrera is a 68-year-old male patient known ischemic cardiomyopathy with recurrent ventricular tachycardia with ICD therapies. He was brought in for an EP study and VT ablation. The procedure was performed under conscious sedation. Right and left groins were prepped and draped as per protocol. Venous sheaths were obtained in the right and left femoral veins. The patient has scarring in both groins on account of surgeries in the groin. He has severe peripheral vascular disease. Therefore, the retrograde route into the left ventricle was avoided and a transseptal route was chosen. He received IV antibiotics and single-chamber ICD was interrogated and reprogrammed. Back-up VVI pacing at 40 beats per minute. Therapies were turned off. Lead impedance was measured. Diagnostic catheters were placed in the high right atrium, coronary sinus, HIS bundle and RV. Both RV and LV pacing were performed. Coronary sinus pacing was performed. Atrial pacing was performed. The sinus cycle length was 994 milliseconds. MS interval 219 milliseconds, QRS 97 milliseconds, QT 493 milliseconds. AH interval 83 milliseconds, HV interval 48 milliseconds. Sinus node recovery times of 600, 500, milliseconds were 1402 and 1432 milliseconds. AV node Wenckebach block 500 milliseconds. Ventricular extra stimulation was performed. Intracardiac echocardiography was performed. The anterior atrial septum was identified. Left to right transseptal catheterization was performed. RA pressure 10 x 3 mm Hg. LA pressure 25 x -4 x 7 mmHg. A long sheath was placed in the left atrium and then using mapping catheter in a pigtail configuration, the mitral valve was crossed and the sheath was placed in the left ventricle. Following that, a PentaRay catheter was placed in the left ventricle. Intracardiac echocardiography was performed. A 3D mapping was performed. The inferior scar was identified and tagged. VT was induced. The left ventricle was quite irritable with a PentaRay catheter and at least 2 different morphologies of VT was induced which is similar to what we had found before and a limited activation map was performed, but the VT terminated. Therefore, a detailed LV voltage map was performed both in sinus rhythm as well as with the extra stimulation at 500/330 milliseconds for decremental mapping. Scar maps were generated, maps were generated, propagation maps generated. The core of the ventricular tachycardia circuits were identified within the scar. VT ablation was performed targeting the areas of slow conduction. There were 2 areas of slow conduction lateral to medial through the core of the scar with a broader septal exit. Lead potentials were noted in this area in the lateral exit. RF ablation section crews activities clerk tip RF ablation catheter was used and RF ablation was performed to ablate the core of the VT circuit. Once this was completed, then non capture was identified along the limited ablation line. No gaps were left and the line was interrogated with 100% grid. Following that, a detailed EP study was performed both on and off high-dose Isuprel. Ventricular extra stimulation after double extra stimuli with at least 2 different drive trains as well as burst stimulation was performed both on and off Isuprel. LV pacing was performed. One short run of nonsustained VT was induced. No sustained VT was induced. This was a sharp contrast to the nips procedure that was performed a few months back when VT was induced with double extra stimuli of at least 2 different morphologies. Following that, the ICD was interrogated and reprogrammed. The lead impedances were stable. VT therapies and VF therapies were reprogrammed. The sheaths were removed and hemostasis was assured. Heparin had been used through the procedure. This was reversed at the end of the procedure. RESULT: Successful ablation of the core VT circuit within the inferior scar using decremental mapping. PLAN: Hold aspirin and start Eliquis 5 mg twice daily for 1 month and then we will stop Eliquis after that. Please note that the patient went into atrial fibrillation during transseptal puncture. We will watch for this in the future. For now, Eliquis will be given for 1 month unless he has recurrent atrial fibrillation. Aspirin will be on hold only until Eliquis is being prescribed. All other medications to continue. MMODL / IJN: [id number] /
[2018-07-03] MEDS: APIXABAN 5 MG TAB PO SCH (18:45)
[2018-07-03] MEDS: METOPROLOL TARTRATE 25 MG TAB PO SCH (21:44)
[2018-07-04] MEDS: APIXABAN 5 MG TAB PO SCH (06:13)
[2018-07-04 07:29] VITALS: TEMP 98.2
[2018-07-04] MEDS: METOPROLOL TARTRATE 25 MG TAB PO SCH (08:11)
--- NOTE | 2018-07-04 08:11 | DS ---
DISCHARGE SUMMARY Mr. Herrera has sustained ventricular tachycardia requiring ICD therapies with underlying ischemic cardiomyopathy, old inferior wall [place] and status post single-chamber ICD. He underwent a VT ablation yesterday successfully. The tachycardia was rendered noninducible. He is doing well this morning. His groins have healed very well. There is no hematoma. Minimal tenderness. No swelling. Heart sounds are normal. Breath sounds are clear. Vitals are stable. PLAN: Discharge home on Eliquis 5 mg twice daily for 1 month. Today, his 12-lead ECG shows sinus rhythm. He will be discharged home later today and follow up in the office in about a week. MMODL / IJN: [id number] /
[2018-07-04] MEDS ORDERED: CLOPIDOGREL 75 MG TAB PO SCH (09:00)
[2018-07-04] MEDS ORDERED: LOSARTAN 50 MG TAB PO SCH (09:00)
[2018-07-04] MEDS ORDERED: SPIRONOLACTONE 25 MG TAB PO SCH (09:00)
[2018-07-04 11:28] VITALS: BP 128/76; PULSE 59
== END 2018-07-04 12:04 | disposition home or self-care (01) ==
LOC: CATHEP 06:56 → 1SOBS 13:56 → CATHEP 07-04 12:04
PROVIDERS: ATTEND Internal Medicine Clinical Cardiac Electrophysiology
DX: I47.2 Ventricular tachycardia (principal); Z45.02 Encounter for adjustment and management of automatic implantable cardiac defibrillator; I44.0 Atrioventricular block, first degree; I49.3 Ventricular premature depolarization; I25.5 Ischemic cardiomyopathy; I49.01 Ventricular fibrillation; I25.10 Atherosclerotic heart disease of native coronary artery without angina pectoris; I73.9 Peripheral vascular disease, unspecified; I10 Essential (primary) hypertension; E78.2 Mixed hyperlipidemia; I48.91 Unspecified atrial fibrillation; I25.2 Old myocardial infarction; Z95.5 Presence of coronary angioplasty implant and graft; Z79.02 Long term (current) use of antithrombotics/antiplatelets; Z79.82 Long term (current) use of aspirin; Z79.899 Other long term (current) drug therapy; Z82.49 Family history of ischemic heart disease and other diseases of the circulatory system; Z72.0 Tobacco use; Z88.8 Allergy status to other drugs, medicaments and biological substances
CPT/HCPCS: 93623; 93662; 93654; C1769 ×5; C1894 ×2; C1730 ×3; C1731; C1893; C1759; C1732; J2001; J2250; J2720; J1644 ×3; J1940; J2370 ×2; J3010; J2704; J0690

== ENCOUNTER 2020-01-26 09:31 | Inpatient (IN) | payer MEDICARE ==
[2020-01-26] MEDS ORDERED: SODIUM CHLORIDE 0.9% 500 ML 500 ML IV STA (10:03)
--- NOTE | 2020-01-26 10:08 | ED ---
General Adult HPI - General Chief complaint: Recheck/Abnormal Lab/Rx Stated complaint: defibrillator went off Time Seen by Provider: 01/26/20 09:35 Source: patient, RN notes reviewed, old records reviewed Mode of arrival: wheelchair Limitations: no limitations - History of Present Illness Initial comments: This is a 69-year-old male who's had a past medical history significant for cardiac stents as well as defibrillator in place. Patient comes in today because he states this morning at 5:30 AM his defibrillator went off times one. Patient states he has no chest pain he was feeling fine prior to the event. Patient states she was in bed when it occurred. Patient denies any difficulty breathing shortness of breath. Patient has any fever chills. Patient has any cough. Patient denies any abdominal pain patient denies nausea vomiting or diarrhea. No swelling or calf tenderness. - Related Data Home Medications Medication Instructions Recorded Confirmed Aspirin 81 mg PO HS 11/27/15 07/03/18 Clopidogrel [Plavix] 75 mg PO DAILY 11/27/15 07/03/18 Losartan Potassium 100 mg PO DAILY 11/27/15 07/03/18 Metoprolol Tartrate [Lopressor] 75 mg PO BID 11/27/15 07/03/18 Nitroglycerin Sl Tabs [Nitrostat] 0.4 mg SUBLINGUAL Q5M PRN 11/27/15 06/28/18 Spironolactone [Aldactone] 25 mg PO DAILY 11/27/15 07/03/18 Famotidine [Pepcid AC] 10 mg PO DAILY PRN 06/28/18 06/28/18 Allergies Allergy/AdvReac Type Severity Reaction Status Date / Time CYRUS Inhibitors AdvReac Cough Verified 01/26/20 09:38 Fswonef-Jhp-Jjk Reductase AdvReac fatty liver Verified 01/26/20 09:38 Inhibitor Review of Systems ROS Statement: Those systems with pertinent positive or pertinent negative responses have been documented in the HPI. ROS Other: All systems not noted in ROS Statement are negative. Past Medical History Past Medical History: GERD/Reflux, Hearing Disorder / Deafness, Sleep Apnea/CPAP/BIPAP Additional Past Medical History / Comment(s): SEE DR ELLIS'S H&P, FATTY LIVER, History of Any Multi-Drug Resistant Organisms: None Reported Past Surgical History: AICD, Heart Catheterization With Stent Additional Past Surgical History / Comment(s): fem/fem bypass, AAA repair, recent aortogram Past Anesthesia/Blood Transfusion Reactions: No Reported Reaction Date of Last Stent Placement:: 01/2002 Type of Cardiac Device: AICD Device Placement Date:: 04/01 Past Psychological History: No Psychological Hx Reported Smoking Status: Never smoker Past Alcohol Use History: None Reported Past Drug Use History: None Reported - Past Family History Mother Family Medical History: Cancer Sister(s) Family Medical History: Cancer Additional Family Medical History / Comment(s): BREAST CANCER General Exam - General Exam Comments Initial Comments: GENERAL: Patient is well-developed and well-nourished. Patient is nontoxic and well- hydrated and is in no acute distress. ENT: Neck is soft and supple. No significant lymphadenopathy is noted. Oropharynx is clear. Moist mucous membranes. Neck has full range of motion without eliciting any pain. EYES: The sclera were anicteric and conjunctiva were pink and moist. Extraocular movements were intact and pupils were equal round and reactive to light. Eyelids were unremarkable. PULMONARY: Unlabored respirations. Good breath sounds bilaterally. No audible rales rhonchi or wheezing was noted. CARDIOVASCULAR: There is a regular rate and rhythm without any murmurs gallops or rubs. ABDOMEN: Soft and nontender with normal bowel sounds. SKIN: Skin is clear with no lesions or rashes and otherwise unremarkable. NEUROLOGIC: Patient is alert and oriented x3. Cranial nerves II through XII are grossly intact. Motor and sensory are also intact. Normal speech, volume and content. Symmetrical smile. MUSCULOSKELETAL: Normal extremities with adequate strength and full range of motion. LYMPHATICS: No significant lymphadenopathy is noted PSYCHIATRIC: Normal psychiatric evaluation. Limitations: no limitations Course Vital Signs 01/26/20 01/26/20 09:36 10:35 Temperature 97.8 F Pulse Rate 67 61 Respiratory 18 18 Rate Blood Pressure 161/70 114/65 O2 Sat by Pulse 99 97 Oximetry Medical Decision Making - Medical Decision Making EKG shows sinus rhythm at 64 bpm AK interval is 246 QRS is 106 QT intervals 46 QTC is 418. Patient's chest x-ray shows no acute abnormality. Patient's defibrillator was interrogated and it showed that the patient had one round of V. tach and was shocked times one. Cardiology stated that they wanted the patient overnight. - Lab Data Result diagrams: 01/26/20 10:00 01/26/20 10:00 Lab Results 01/26/20 01/26/20 01/26/20 Range/Units 10:00 10:00 10:00 WBC 8.3 (3.8-10.6) k/uL RBC 5.41 (4.30-5.90) m/uL Hgb 15.9 (13.0-17.5) gm/dL Hct 48.9 (39.0-53.0) % MCV 90.4 (80.0-100.0) fL MCH 29.4 (25.0-35.0) pg MCHC 32.5 (31.0-37.0) g/dL RDW 13.7 (11.5-15.5) % Plt Count 239 (150-450) k/uL Neutrophils % 74 % Lymphocytes % 15 % Monocytes % 7 % Eosinophils % 2 % Basophils % 1 % Neutrophils # 6.2 (1.3-7.7) k/uL Lymphocytes # 1.2 (1.0-4.8) k/uL Monocytes # 0.6 (0-1.0) k/uL Eosinophils # 0.2 (0-0.7) k/uL Basophils # 0.1 (0-0.2) k/uL PT 10.2 (9.0-12.0) sec INR 1.0 (<1.2) APTT 23.3 (22.0-30.0) sec Sodium 138 (137-145) mmol/L Potassium 4.5 (3.5-5.1) mmol/L Chloride 103 (98-107) mmol/L Carbon Dioxide 23 (22-30) mmol/L Anion Gap 12 mmol/L BUN 18 (9-20) mg/dL Creatinine 0.86 (0.66-1.25) mg/dL Est GFR (CKD-EPI)AfAm >90 (>60 ml/min/1.73 sqM) Est GFR (CKD-EPI)NonAf 87 (>60 ml/min/1.73 sqM) Glucose 117 H (74-99) mg/dL Calcium 9.7 (8.4-10.2) mg/dL Magnesium 2.0 (1.6-2.3) mg/dL Total Bilirubin 0.6 (0.2-1.3) mg/dL AST 35 (17-59) U/L ALT 24 (4-49) U/L Alkaline Phosphatase 53 (38-126) U/L Troponin I (0.000-0.034) ng/mL Total Protein 7.7 (6.3-8.2) g/dL Albumin 4.4 (3.5-5.0) g/dL 01/26/20 Range/Units 10:00 WBC (3.8-10.6) k/uL RBC (4.30-5.90) m/uL Hgb (13.0-17.5) gm/dL Hct (39.0-53.0) % MCV (80.0-100.0) fL MCH (25.0-35.0) pg MCHC (31.0-37.0) g/dL RDW (11.5-15.5) % Plt Count (150-450) k/uL Neutrophils % % Lymphocytes % % Monocytes % % Eosinophils % % Basophils % % Neutrophils # (1.3-7.7) k/uL Lymphocytes # (1.0-4.8) k/uL Monocytes # (0-1.0) k/uL Eosinophils # (0-0.7) k/uL Basophils # (0-0.2) k/uL PT (9.0-12.0) sec INR (<1.2) APTT (22.0-30.0) sec Sodium (137-145) mmol/L Potassium (3.5-5.1) mmol/L Chloride (98-107) mmol/L Carbon Dioxide (22-30) mmol/L Anion Gap mmol/L BUN (9-20) mg/dL Creatinine (0.66-1.25) mg/dL Est GFR (CKD-EPI)AfAm (>60 ml/min/1.73 sqM) Est GFR (CKD-EPI)NonAf (>60 ml/min/1.73 sqM) Glucose (74-99) mg/dL Calcium (8.4-10.2) mg/dL Magnesium (1.6-2.3) mg/dL Total Bilirubin (0.2-1.3) mg/dL AST (17-59) U/L ALT (4-49) U/L Alkaline Phosphatase (38-126) U/L Troponin I <0.012 (0.000-0.034) ng/mL Total Protein (6.3-8.2) g/dL Albumin (3.5-5.0) g/dL Critical Care Time Critical Care Time: Yes Total Critical Care Time: 35 Disposition Clinical Impression: Ventricular tachycardia Disposition: ADMITTED IP TO THIS HOSP Referrals: Brittany Antony DO [Primary Care Provider] - 1-2 days Time of Disposition: 12:48
[2020-01-26 10:22] LABS: Basophils # (A) 0.1 k/uL (0-0.2); Basophils % (A) 1 %; Eosinophils # (A) 0.2 k/uL (0-0.7); Eosinophils % (A) 2 %; HCT 48.9 % (39.0-53.0); HGB 15.9 gm/dL (13.0-17.5); Lymphocytes # (A) 1.2 k/uL (1.0-4.8); Lymphocytes % (A) 15 %; MCH 29.4 pg (25.0-35.0); MCHC 32.5 g/dL (31.0-37.0); MCV 90.4 fL (80.0-100.0); Mean Platelet Volume 7.1; Monocytes # (A) 0.6 k/uL (0-1.0); Monocytes % (A) 7 %; Neutrophils # (A) 6.2 k/uL (1.3-7.7); Neutrophils % (A) 74 %; Platelet Count 239 k/uL (150-450); RBC 5.41 m/uL (4.30-5.90); RDW 13.7 % (11.5-15.5); WBC 8.3 k/uL (3.8-10.6)
[2020-01-26 10:33] LABS: Partial Thromboplastin Time 23.3 sec (22.0-30.0); Prothrombin Time 10.2 sec (9.0-12.0)
[2020-01-26 10:34] LABS: ALT 24 U/L (4-49); AST 35 U/L (17-59); African American GFR (CKD) >90 (>60 ml/min/1.73 sqM); Albumin 4.4 g/dL (3.5-5.0); Alkaline Phosphatase 53 U/L (38-126); Anion Gap 12 mmol/L; Blood Urea Nitrogen 18 mg/dL (9-20); Calcium 9.7 mg/dL (8.4-10.2); Carbon Dioxide 23 mmol/L (22-30); Chloride 103 mmol/L (98-107); Glucose 117 mg/dL (74-99); Non-African American GFR(CKD) 87 (>60 ml/min/1.73 sqM); Potassium 4.5 mmol/L (3.5-5.1); Sodium 138 mmol/L (137-145); Total Bilirubin 0.6 mg/dL (0.2-1.3); Total Protein 7.7 g/dL (6.3-8.2)
--- NOTE | 2020-01-26 10:42 | XR ---
EXAMINATION TYPE: XR chest 2V DATE OF EXAM: 01/26/2020 COMPARISON: 05/06/2013 TECHNIQUE: PA and lateral views submitted. HISTORY: Chest pain FINDINGS: The lungs are clear and there is no pneumothorax, pleural effusion, or focal pneumonia. Defibrillat or noted. No overt failure. Diffuse osteopenia. Hypertrophic change of the spine. IMPRESSION: 1. No acute process.
[2020-01-26] MEDS ORDERED: NITROGLYCERIN SL TABS 0.4 MG TAB SUBLINGUAL PRN (12:49)
--- NOTE | 2020-01-26 16:52 | P.HPIM ---
History of Present Illness H&P Date: 01/26/20 Chief Complaint: AICD firing History of presenting complaint: This is a very pleasant [address] 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 Chronic stable medical conditions include GERD, hard of hearing, hyperlipidemia, hypertension, coronary artery disease with stent and fem-fem bypass. Patient has AICD. Patient presents with AICD firing. Patient verbalized report from the same. There is no warning symptoms. No further episodes. Prior episode was about 56 years ago. Otherwise patient is rather active. No cardiac symptoms. Defibrillator was intermittently irrigated with the patient is here. Should patient have a round of ventricular tachycardia. at the bedside.. Review of systems: GEN.: Tired EYES: None HEENT: None NECK: None RESPIRATORY: None CARDIOVASCULAR: As above GASTROINTESTINAL: None GENITOURINARY: None MUSCULOSKELETAL: None LYMPHATICS: None HEMATOLOGICAL: None PSYCHIATRY: None NEUROLOGICAL: None Past medical history to include: GERD, hard of hearing, hyperlipidemia, hypertension, coronary artery stent, fem- fem bypass, AAA repair, AICD Social history: . 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 Smoked about 2 packs a day for 40 years stopped in 2001. No alcohol. Physical examination: VITAL SIGNS: 97.8, 67, 18, 125/98, 97% room air GENERAL: BMI 27.5, sitting at the edge of bed, comfortable EYES: Pupils equal. Conjunctiva normal. HEENT: External appearance of nose and ears normal, oral cavity grossly normal. NECK: JVD not raised; masses not palpable. HEART: First and second heart sounds are normal; no edema. LUNGS: Respiratory rate normal; decreased breath sounds. ABDOMEN: Soft, nontender, liver spleen not palpable, no masses palpable. PSYCH: Alert and oriented x3; mood and affect normal. NEUROLOGICAL: Cranial nerves grossly intact; no facial asymmetry, power and sensation grossly intact. LYMPHATICS: No lymph nodes palpable in the axilla and neck INVESTIGATIONS, reviewed in the clinical context: White count 8.3 hemoglobin 15.9 potassium 4.5 creatinine 0.86 Troponin I 2 negative EKG tracing personally reviewed by me-poor R-wave progression. Chest x-ray film personally reviewed by me-borderline cardiomegaly. Lung salmon clear Assessment: -1 episode of AICD firing, it was interrogated in the ER showed episode of ventricular tachycardia. -GERD, Hard of hearing, -Hyperlipidemia -Essential hypertension -Coronary artery disease prior history of stent -Peripheral arterial disease a prior fem-fem bypass Plan: Home medications resumed. Patient to telemetry. Care was discussed with the patient and the the . Cardiology consulted. Past Medical History Past Medical History: GERD/Reflux, Hearing Disorder / Deafness, Hyperlipidemia, Hypertension, Myocardial Infarction ([place]) Additional Past Medical History / Comment(s): AAA Last Myocardial Infarction Date:: 04/2013 History of Any Multi-Drug Resistant Organisms: None Reported Past Surgical History: AICD, Cardiac Ablation, Heart Catheterization With Stent, Hernia Repair Additional Past Surgical History / Comment(s): fem/fem bypass, AAA repair, recent aortogram. Past Anesthesia/Blood Transfusion Reactions: No Reported Reaction Date of Last Stent Placement:: 01/2002 Type of Cardiac Device: AICD Device Placement Date:: 04/01 Past Psychological History: No Psychological Hx Reported Smoking Status: Former smoker Past Alcohol Use History: None Reported Additional Past Alcohol Use History / Comment(s): STARTED SMOKING AT AGE 12 QUIT IN 2001-SMOKED 2 1/2- 3PPD. Past Drug Use History: None Reported - Past Family History Mother Family Medical History: Cancer Sister(s) Family Medical History: Cancer Additional Family Medical History / Comment(s): BREAST CANCER Father Family Medical History: Coronary Artery Disease (CAD), Myocardial Infarction ([place]) Medications and Allergies Home Medications Medication Instructions Recorded Confirmed Type Aspirin 81 mg PO HS 11/27/15 01/26/20 History Clopidogrel [Plavix] 75 mg PO DAILY 11/27/15 01/26/20 History Losartan Potassium 100 mg PO DAILY 11/27/15 01/26/20 History Nitroglycerin Sl Tabs [Nitrostat] 0.4 mg SUBLINGUAL Q5M PRN 11/27/15 01/26/20 History Spironolactone [Aldactone] 25 mg PO DAILY 11/27/15 01/26/20 History Metoprolol Succinate [Toprol XL] 150 mg PO DAILY 01/26/20 01/26/20 History Allergies Allergy/AdvReac Type Severity Reaction Status Date / Time CYRUS Inhibitors AdvReac Cough Verified 01/26/20 15:03 Desvjcy-Ntj-Shn Reductase AdvReac fatty liver Verified 01/26/20 15:03 Inhibitor Physical Exam Vitals: Vital Signs Temp Pulse Pulse Resp BP BP Pulse Ox 07/05/20 14:58 68 16 124/78 98 01/26/20 13:38 98.3 F 64 18 143/64 100 01/26/20 13:19 68 18 125/98 97 01/26/20 10:35 61 18 114/65 97 01/26/20 09:36 97.8 F 67 18 161/70 99 Intake and Output 01/26/20 01/26/20 01/26/20 06:59 14:59 22:59 Intake Total 400 Balance 400 Intake: Oral 400 Other: Weight 70.307 kg Results CBC & Chem 7: 01/26/20 10:00 01/26/20 10:00 Labs: Abnormal Lab Results - Last 24 Hours (Table) 01/26/20 Range/Units 10:00 Glucose 117 H (74-99) mg/dL Thrombosis Risk Factor Assmnt - Choose All That Apply Any of the Below Risk Factors Present?: Yes Each Factor Represents 1 point: Obesity (BMI >25) Each Risk Factor Represents 2 Points: Age 61-74 years Other congenital or acquired thrombophilia - If yes, enter type in comment: No Thrombosis Risk Factor Assessment Total Risk Factor Score: 3 Thrombosis Risk Factor Assessment Level: Moderate Risk
[2020-01-26] MEDS: ENOXAPARIN 40 MG/0.4 ML SYRINGE SQ SCH (18:42)
[2020-01-26] MEDS ORDERED: ASPIRIN 81 MG PO SCH (21:00)
[2020-01-27 07:15] LABS: Cholesterol 198 mg/dL (<200); HDL Cholesterol 44 mg/dL (40-60); LDL Cholesterol,Calculated 126 mg/dL (0-99); Triglycerides 142 mg/dL (<150)
[2020-01-27] MEDS: ENOXAPARIN 40 MG/0.4 ML SYRINGE SQ SCH (08:07)
[2020-01-27] MEDS ORDERED: ASPIRIN 325 MG TAB PO SCH (09:00)
[2020-01-27] MEDS ORDERED: SPIRONOLACTONE 25 MG TAB PO SCH (09:00)
[2020-01-27] MEDS ORDERED: METOPROLOL SUCCINATE (ER) 50 MG TAB.ER.24H PO SCH (09:00)
[2020-01-27] MEDS ORDERED: LOSARTAN 50 MG TAB PO SCH (09:00)
[2020-01-27] MEDS ORDERED: CLOPIDOGREL 75 MG TAB PO SCH (09:00)
--- NOTE | 2020-01-27 16:31 | P.CRDCN ---
History of Present Illness Consult date: 01/27/20 History of present illness: This is 69-year-old gentleman with history of ischemic heart disease with a previous inferior wall IL and stent placement. Patient also had AICD implantation. Patient had an ablation for V. tach in the past. Over the last 6 years. Patient had one about of ventricular tachycardia. Patient came again this time with complaints of firing from the AICD .Interrogation showed evidence of ventricular arrhythmia. Patient has been stable since the incident. His cardiac enzymes are negative. As his echocardiogram showed hypokinesis of the i nferior wall with an ejection fraction of 40 to45%. Patient is tolerating activity very well. Patient is being discharged home. Patient wants to follow with Dr. KENNY Caba. Outpatient evaluation could be done to rule out any underlying ischemic heart disease. At this point patient is critically stable and is being discharged home. If he patient had a recurrence of ventricular tachycardia, patient may also need EP evaluation and possible ablation Review of Systems As per the chart Past Medical History Past Medical History: GERD/Reflux, Hearing Disorder / Deafness, Hyperlipidemia, Hypertension, Myocardial Infarction (IL) Additional Past Medical History / Comment(s): AAA Last Myocardial Infarction Date:: 04/2013 History of Any Multi-Drug Resistant Organisms: None Reported Past Surgical History: AICD, Cardiac Ablation, Heart Catheterization With Stent, Hernia Repair Additional Past Surgical History / Comment(s): fem/fem bypass, AAA repair, recent aortogram. Past Anesthesia/Blood Transfusion Reactions: No Reported Reaction Date of Last Stent Placement:: 01/2002 Type of Cardiac Device: AICD Device Placement Date:: 04/01 Past Psychological History: No Psychological Hx Reported Smoking Status: Former smoker Past Alcohol Use History: None Reported Additional Past Alcohol Use History / Comment(s): STARTED SMOKING AT AGE 12 QUIT IN 2001-SMOKED 2 1/2- 3PPD. Past Drug Use History: None Reported - Past Family History Mother Family Medical History: Cancer Sister(s) Family Medical History: Cancer Additional Family Medical History / Comment(s): BREAST CANCER Father Family Medical History: Coronary Artery Disease (CAD), Myocardial Infarction (IL) Medications and Allergies Home Medications Medication Instructions Recorded Confirmed Type Aspirin 81 mg PO HS 11/27/15 01/26/20 History Clopidogrel [Plavix] 75 mg PO DAILY 11/27/15 01/26/20 History Losartan Potassium 100 mg PO DAILY 11/27/15 01/26/20 History Nitroglycerin Sl Tabs [Nitrostat] 0.4 mg SUBLINGUAL Q5M PRN 11/27/15 01/26/20 History Spironolactone [Aldactone] 25 mg PO DAILY 11/27/15 01/26/20 History Metoprolol Succinate [Toprol XL] 150 mg PO DAILY 01/26/20 01/26/20 History Allergies Allergy/AdvReac Type Severity Reaction Status Date / Time CYRUS Inhibitors AdvReac Cough Verified 01/26/20 15:03 [id number] Reductase AdvReac fatty liver Verified 01/26/20 15:03 Inhibitor Physical Exam Vitals: Vital Signs Temp Pulse Resp BP Pulse Ox 01/27/20 12:00 98.1 F 58 L 20 164/77 01/27/20 08:00 97.8 F 89 18 157/85 01/27/20 04:00 97.7 F 68 16 125/76 97 01/27/20 00:00 98.3 F 67 16 139/68 95 01/26/20 20:15 98.2 F 61 18 129/87 95 Intake and Output 01/27/20 01/27/20 01/27/20 06:59 14:59 22:59 Other: Voiding Method Toilet Toilet # Voids 3 2 Weight 71.1 kg GENERAL EXAM: Patient is alert and oriented and doesn't appear to be in any acute distress HEENT: Normocephalic. Normal reaction of pupils, equal size, normal range of extraocular motion. No erythema or exudates in the throat. NECK: No masses, no nuchal rigidity. CHEST: No chest wall deformity. LUNGS: Equal air entry with no crackles or wheeze. HEART: S1 and S2 normal with no audible mumurs or gallops. Regular rhythm, femorals equal on both sides.. ABDOMEN: No hepatosplenomegaly, normal bowel sounds, no guarding or rigidity. SKIN: No rashes CENTRAL NERVOUS SYSTEM: No focal deficits. EXTREMITIES: No cyanosis, clubbing or edema. Results 01/26/20 10:00 01/26/20 10:00 Cardiac Enzymes 01/26/20 Range/Units 16:11 Troponin I <0.012 (0.000-0.034) ng/mL Lipids 01/27/20 Range/Units 06:10 Triglycerides 142 (<150) mg/dL Cholesterol 198 (<200) mg/dL HDL Cholesterol 44 (40-60) mg/dL Current Medications Generic Name Dose Route Start Last Admin Trade Name Carl PRN Reason Stop Dose Admin Aspirin 81 mg 01/26/20 21:00 01/26/20 20:20 Aspirin PO 81 mg HS ABNER Administration Clopidogrel Bisulfate 75 mg 01/27/20 09:00 01/27/20 08:06 Plavix PO 75 mg DAILY ABNER Administration Enoxaparin Sodium 40 mg 01/26/20 17:00 01/27/20 08:07 Lovenox SQ Not Given DAILY ABNER Losartan Potassium 100 mg 01/27/20 09:00 01/27/20 08:06 Cozaar PO 100 mg DAILY ABNER Administration Metoprolol Succinate 150 mg 01/27/20 09:00 01/27/20 08:05 Toprol Xl PO 150 mg DAILY ABNER Administration Nitroglycerin 0.4 mg 01/26/20 12:49 Nitrostat SUBLINGUAL Q5M PRN Chest Pain Spironolactone 25 mg 01/27/20 09:00 01/27/20 08:06 Aldactone PO 25 mg DAILY ABNER Administration Intake and Output 01/27/20 01/27/20 01/27/20 06:59 14:59 22:59 Other: Voiding Method Toilet Toilet # Voids 3 2 Weight 71.1 kg 01/26/20 10:00 01/26/20 10:00 EKG Interpretations (text) Sinus rhythm with old inferior wall IL and old anteroseptal IL Assessment and Plan (1) CAD (coronary artery disease) Current Visit: Yes Status: Acute Code(s): I25.10 - ATHSCL HEART DISEASE OF [place] CORONARY ARTERY W/O ANG PCTRS SNOMED Code(s): 76319030 (2) Ventricular tachycardia Current Visit: Yes Status: Acute Code(s): I47.2 - VENTRICULAR TACHYCARDIA SNOMED Code(s): 48640142 (3) Claudication in peripheral vascular disease Current Visit: No Status: Acute Priority: High Code(s): I73.9 - PERIPHERAL VASCULAR DISEASE, UNSPECIFIED SNOMED Code(s): 83601922 Plan: Patient is currently stable since episode of V. tach. His EKG did not reveal any acute changes. Echo showed evidence of old inferior wall IL with an ejection fraction of 40 to 45%. Patient will continue current medical therapy. Follow with Dr. KENNY Caba for outpatient evaluation. If the V. tach recurs, patient may need repeat ablation and possibly cardiac catheterization
[2020-01-27 17:19] VITALS: BP 142/75; PULSE 73; RESP 18; TEMP 98.7
--- NOTE | 2020-01-28 13:29 | ECHOF ---
Referral Reason:lv function MEASUREMENTS -------- HEIGHT: 160.0 cm WEIGHT: 70.3 kg BP: RVIDd: 4.0 cm (< 3.3) IVSd: 1.3 cm (0.6 - 1.1) LVIDd: 4.5 cm (3.9 - 5.3) LVPWd: 1.0 cm (0.6 - 1.1) IVSs: 1.6 cm LVIDs: 4.1 cm LVPWs: 0.9 cm LA Diam: 4.4 cm (2.7 - 3.8) LAESV Index (A-L): 34.11 ml/m Ao Diam: 3.1 cm (2.0 - 3.7) AV Cusp: 2.0 cm (1.5 - 2.6) LA Diam: 4.3 cm (2.7 - 3.8) MV EXCURSION: 19.544 mm (> 18.000) MV EF SLOPE: 69 mm/s (70 - 150) EPSS: 1.0 cm MV E Jose Carlos: 0.56 m/s MV DecT: 239 ms MV A Jose Carlos: 1.09 m/s MV E/A Ratio: 0.51 RAP: 5.00 mmHg RVSP: 14.68 mmHg FINDINGS -------- Pacerwire seen in RV and RA. This was a technically good study. The left ventricular size is normal. There is mild concentric left ventricular hypertrophy. Overa ll left ventricular systolic function is mild-moderately impaired with, an EF between 40 - 45 %. [place] inferior LV wall motion is hypokinetic. Basal inferoseptal LV wall motion is hypokinetic. M id inferior LV wall motion is hypokinetic. Mid inferoseptal LV wall motion is hypokinetic. The right ventricle is mild to moderately enlarged. LA is moderately dilated 34-39 ml/m2 The right atrial size is normal. There is mild aortic valve sclerosis. There is mild aortic regurgitation. Mild mitral annular calcification present. Mild mitral regurgitation is present. Mild tricuspid regurgitation present. Right ventricular systolic pressure is normal at < 35 mmHg. Trace/mild (physiologic) pulmonic regurgitation. The aortic root size is normal. There is no pericardial effusion. CONCLUSIONS -------- 1. Pacerwire seen in RV and RA. 2. There is mild concentric left ventricular hypertrophy. 3. Overall left ventricular systolic function is mild-moderately impaired with, an EF between 40 - 45 %. 4. Basal inferior LV wall motion is hypokinetic. 5. Basal inferoseptal LV wall motion is hypokinetic. 6. Mid inferior LV wall motion is hypokinetic. 7. Mid inferoseptal LV wall motion is hypokinetic. 8. The right ventricle is mild to moderately enlarged. 9. LA is moderately dilated 34-39 ml/m2 10. There is mild aortic valve sclerosis. 11. There is mild aortic regurgitation. 12. Mild mitral annular calcification present. 13. Mild mitral regurgitation is present. 14. Mild tricuspid regurgitation present. 15. Trace/mild (physiologic) pulmonic regurgitation. 16. There is no pericardial effusion. MANAGER BUSINESS INTELLIGENCE: Jackelin Velázquez RDCS
--- NOTE | 2020-01-28 23:13 | P.DS ---
Providers Date of admission: 01/26/20 12:50 Expected date of discharge: 01/28/20 Attending physician: Ac Reynoso Consults: 01/26/20 12:50 Consult Physician Urgent Consulting Provider: [facility] Consult Reason/Comments: Ventricular tachycardia Do you want consulting provider notified?: Yes Primary care physician: Brittany Antony [facility] Course: Chief Complaint: AICD firing History of presenting complaint: This is a very pleasant [address] Antony and Dr. KENNY Caba the car [facility]er. Chronic stable medical conditions include GERD, hard of hearing, hyperlipidemia, hypertension, coronary artery disease with stent and fem-fem bypass. Patient has AICD. Patient presents with AICD firing. Patient verbalized report from the same. There is no warning symptoms. No further episodes. Prior episode was about 56 years ago. Otherwise patient is rather active. No cardiac symptoms. Defibrillator was intermittently interrogated- showed ventricular tachycardia. Patient remained asymptomatic overnight. Seen by Dr. Mendez. Cleared for discharge Consultation: Dr. Mendez from cardiology Physical examination: VITAL SIGNS: 98.7, 73, 18, 142/75, 95% room air GENERAL: Sitting up, comfortable EYES: Pupils equal. Conjunctiva normal. HEENT: External appearance of nose and ears normal, oral cavity grossly normal. NECK: JVD not raised; masses not palpable. HEART: First and second heart sounds are normal; no edema. LUNGS: Respiratory rate normal; decreased breath sounds. ABDOMEN: Soft, nontender, liver spleen not palpable, no masses palpable. PSYCH: Alert and oriented x3; mood and affect normal. INVESTIGATIONS, reviewed in the clinical context: White count 8.3 hemoglobin 15.9 potassium 4.5 creatinine 0.86 Troponin I 2 negative EKG tracing personally reviewed by me-poor R-wave progression. Chest x-ray film personally reviewed by me-borderline cardiomegaly. Lung salmon clear 2-D echocardiogram shows EF of 40-45%. Septal wall motion operability. Assessment: -1 episode of AICD firing, it was interrogated in the ER showed episode of ventricular tachycardia. -GERD, Hard of hearing, -Hyperlipidemia -Essential hypertension -Coronary artery disease prior history of stent -Peripheral arterial disease a prior fem-fem bypass -Chronic congestive heart failure from systolic dysfunction EF 40-45% Disposition: Home Patient Condition at Discharge: Stable Plan - Discharge Summary New Discharge Prescriptions: Continue Nitroglycerin Sl Tabs [Nitrostat] 0.4 mg SUBLINGUAL Q5M PRN PRN Reason: Chest Pain Losartan Potassium 100 mg PO DAILY Clopidogrel [Plavix] 75 mg PO DAILY Spironolactone [Aldactone] 25 mg PO DAILY Aspirin 81 mg PO HS Metoprolol Succinate [Toprol XL] 150 mg PO DAILY Discharge Medication List Aspirin 81 mg PO HS 11/27/15 [History] Clopidogrel [Plavix] 75 mg PO DAILY 11/27/15 [History] Losartan Potassium 100 mg PO DAILY 11/27/15 [History] Nitroglycerin Sl Tabs [Nitrostat] 0.4 mg SUBLINGUAL Q5M PRN 11/27/15 [History] Spironolactone [Aldactone] 25 mg PO DAILY 11/27/15 [History] Metoprolol Succinate [Toprol XL] 150 mg PO DAILY 01/26/20 [History] Follow up Appointment(s)/Referral(s): Shani Caba MD [STAFF PHYSICIAN] - 1 Week Brittany Antony DO [Primary Care Provider] - 1-2 days (please schedule appointment when office reopens ) Patient Instructions/Handouts: Coronary Artery Disease (GEN), Tachycardia (GEN) Discharge Disposition: HOME SELF-CARE
== END 2020-01-27 17:16 | disposition home or self-care (01) | DRG 309 ==
LOC: EC 09:31 → 3SCARD 12:50
PROVIDERS: ADMIT Hospitalist; ATTEND Hospitalist
PROC: 4B02XTZ Measurement of Cardiac Defibrillator, External Approach (ICD-10-PCS; principal; 2020-01-26)
DX: I47.2 Ventricular tachycardia (principal); I50.22 Chronic systolic (congestive) heart failure; K21.9 Gastro-esophageal reflux disease without esophagitis; E78.5 Hyperlipidemia, unspecified; I73.9 Peripheral vascular disease, unspecified; I25.10 Atherosclerotic heart disease of native coronary artery without angina pectoris; H91.90 Unspecified hearing loss, unspecified ear; I11.0 Hypertensive heart disease with heart failure; Z11.59 Encounter for screening for other viral diseases; Z95.5 Presence of coronary angioplasty implant and graft; Z98.890 Other specified postprocedural states; Z87.891 Personal history of nicotine dependence; I25.2 Old myocardial infarction; Z80.3 Family history of malignant neoplasm of breast; Z82.49 Family history of ischemic heart disease and other diseases of the circulatory system; Z79.02 Long term (current) use of antithrombotics/antiplatelets; Z79.82 Long term (current) use of aspirin; Z79.899 Other long term (current) drug therapy; Z88.8 Allergy status to other drugs, medicaments and biological substances; Z45.02 Encounter for adjustment and management of automatic implantable cardiac defibrillator
CPT/HCPCS: 36415; 71046; 80053; 80061; 83735; 84484; 85025; 85610; 85730; 93005; 93306; 99291

== ENCOUNTER → 2020-07-03 | Outpatient (CLI) | payer MEDICARE ==
[2020-07-03 10:53] LABS: Basophils # (A) 0.1 k/uL (0-0.2); Basophils % (A) 2 %; Eosinophils # (A) 0.3 k/uL (0-0.7); Eosinophils % (A) 5 %; HCT 48.2 % (39.0-53.0); HGB 16.3 gm/dL (13.0-17.5); Lymphocytes # (A) 1.6 k/uL (1.0-4.8); Lymphocytes % (A) 25 %; MCH 30.3 pg (25.0-35.0); MCHC 33.8 g/dL (31.0-37.0); MCV 89.7 fL (80.0-100.0); Monocytes # (A) 0.7 k/uL (0-1.0); Monocytes % (A) 11 %; Neutrophils # (A) 3.6 k/uL (1.3-7.7); Neutrophils % (A) 55 %; Platelet Count 231 k/uL (150-450); RBC 5.37 m/uL (4.30-5.90); RDW 13.8 % (11.5-15.5); WBC 6.4 k/uL (3.8-10.6)
[2020-07-03 11:05] LABS: Potassium 5.5 mmol/L (3.5-5.1)
== END | disposition home or self-care (01) ==
LOC: LABPAT 09:56
PROVIDERS: ATTEND Surgery
DX: Z01.818 Encounter for other preprocedural examination (principal); I74.3 Embolism and thrombosis of arteries of the lower extremities
CPT/HCPCS: 36415; 80051; 82565; 84520; 85025

== ENCOUNTER 2020-07-07 07:52 | Day surgery (SDC) | payer MEDICARE ==
[2020-07-06 09:43] VITALS: BMI 28.3
[~2020-07-07 07:52] MED LIST changes: +ALPRAZolam 0.25 MG TAB PO PRN; +ASPIRIN 325 MG TAB PO PRN; -LACTATED RINGERS 1,000 ML IV SCH; -LIDOCAINE 1% 20 ML VIAL (10MG/ML) FOR IV START INTRADERMA PRN; -MIDAZOLAM (PF) 2 MG/2 ML VIAL IV PRN; -SODIUM CHLORIDE 0.9% 1,000 ML IV SCH; +SODIUM CHLORIDE 0.9% 1,000 ML in EMPTY BAG 1 BAG IV ONE
[2020-07-07 08:22] VITALS: RESP 16; TEMP 97.9
[2020-07-07] MEDS ORDERED: SODIUM CHLORIDE 0.9% 1,000 ML IV ONE (08:23)
[2020-07-07] MEDS ORDERED: MIDAZOLAM 2 MG/2 ML VIAL IVP ONE (09:24)
[2020-07-07] MEDS ORDERED: LIDOCAINE 1% INJ 10MG/ML (20 ML MDV) SQ ONE (09:29)
[2020-07-07] MEDS ORDERED: HEPARIN SODIUM 1,000 UN/ML (10ML VL) IV ONE (10:07)
[2020-07-07] MEDS ORDERED: IOPAMIDOL-370 100ML BTL INJ ONE ×2 (10:47)
[2020-07-07] MEDS ORDERED: SODIUM CHLORIDE 0.9% 1,000 ML IV SCH (11:20)
[2020-07-07 13:46] VITALS: BP 112/67; PULSE 62
--- NOTE | 2020-07-07 14:49 | IR ---
EXAMINATION TYPE: IR stent intravas non coronary DATE OF EXAM: 07/07/2020 COMPARISON: NONE HISTORY: Fluoroscopy time. Fluoroscopy was provided to the referring clinician.
--- NOTE | 2020-07-09 08:39 | P.OP ---
Date of Procedure: 07/07/20 Description of Procedure: Preoperative diagnosis: Disabling claudication, Hernandez classification 3 Postop diagnosis: Same, right external iliac artery 90% stenosis, bilateral SFA CTOs Procedure: 1. Aortogram with bilateral lower extremity runoffs via left brachial artery access under ultrasound guidance. 2. Percutaneous transluminal balloon angioplasty of the right external iliac artery. 3. percutaneous right external iliac artery stenting Surgeon: Koby Anesthesia: Moderate sedation times 40 mins Estimated blood loss: 10 mL Complications: None Condition: Stable Findings: Aorta: Patent, atherosclerotic disease throughout Iliacs: Left common iliac artery occlusion. Right common iliac artery after stenotic disease with out evidence of stenosis. There is a stent present in the right external iliac artery with in-stent stenosis as well as distal to this area and the external iliac artery there is 90% stenosis and dense calcific disease above the inguinal ligament. There is some small area of calcification without flow limitation as well. Internal iliac artery on the right is patent with mild atherosclerotic disease. Femorals: Femoral to femoral artery bypass graft is patent without any signs of stenosis at the anastomotic sites. Bilateral profunda and common femoral arteries are patent but have mild atherosclerotic disease. Bilateral superficial femoral arteries are occluded just after takeoff and reconstitutes at the above-knee popliteal arteries bilaterally. Popliteal: Bilateral popliteal arteries are calcified with mild atherosclerotic disease and mild stenosis. Tibials: Two-vessel runoff to the ankle noted bilaterally. There is calcific disease throughout with diminished flow likely due to proximal disease. Operative narrative: After written informed consent was obtained the patient all risks benefits competitions were described the patient is brought to the [employer] and laid in a supine position. The area of the left arm was prepped and draped in the usual sterile fashion. Local anesthesia with moderate sedation was performed with continuous pulse ox monitoring and EKG monitoring. Utilizing ultrasound the left brachial artery was visualized and shown to be patent without any significant plaque. Utilizing a multipurpose needle under ultrasound guidance the artery was accessed. Guidewire was placed followed by 5-Belgian sheath. 035 Glidewire was then placed into the aorta followed by pigtail catheter. Angiogram was then obtained of the aorta. Catheter was then placed at the bifurcation and lower extremity runoffs were obtained. The right external iliac artery demonstrated significant stenosis greater than 90% and therefore 035 Glidewire advantage was placed across this lesion and the 5-Belgian sheath was removed and replaced with a long RAABE sheath. The lesion in the right external iliac artery was then crossed utilizing a quick cross catheter and balloon angioplasty with a 6 x 80 mm balloon was performed after patient was administered heparin. Once balloon angioplasty was completed a 8 x 60 mm stent was then placed across the lesion extending into the previous stent to treat the in-stent stenosis as well. Once completed balloon angioplasty was once again performed within the stent and resolution of the stenosis was achieved. Final angiogram was performed demonstrating residual stenosis of approximately 5-10% but otherwise good brisk flow throughout as well as into the bypass. Once completed all guidewires, catheters and sheaths were removed and pressure was placed for hemostasis. Patient tolerated procedure well was sent to PACU for recovery Plan - Discharge Summary Discharge Rx Participant: No New Discharge Prescriptions: No Action Nitroglycerin Sl Tabs [Nitrostat] 0.4 mg SUBLINGUAL Q5M PRN PRN Reason: Chest Pain Losartan Potassium 100 mg PO DAILY Clopidogrel [Plavix] 75 mg PO DAILY Spironolactone [Aldactone] 25 mg PO DAILY Aspirin 81 mg PO HS Metoprolol Tartrate [Lopressor] 100 mg PO BID Discharge Medication List Aspirin 81 mg PO HS 11/27/15 [History] Clopidogrel [Plavix] 75 mg PO DAILY 11/27/15 [History] Losartan Potassium 100 mg PO DAILY 11/27/15 [History] Nitroglycerin Sl Tabs [Nitrostat] 0.4 mg SUBLINGUAL Q5M PRN 11/27/15 [History] Spironolactone [Aldactone] 25 mg PO DAILY 11/27/15 [History] Metoprolol Tartrate [Lopressor] 100 mg PO BID 07/06/20 [History] Follow up Appointment(s)/Referral(s): Yuriy Whalen DO [STAFF PHYSICIAN] - 07/28/20 2:45 pm (follow up appointment is on Jul.28 at 2:45 PM) Patient Instructions/Handouts: Peripheral Vascular Disease (DC), Procedural Sedation (ED), Peripheral Vascular Stent Placement (DC) Activity/Diet/Wound Care/Special Instructions: NO driving for two days. No changes to medications per Dr Whalen no lifting more than 5 lbs for two days, no pushing pulling straining for two days. signs of infection ie: fever, rash, drainage from puncture site contact doctor immediately. Keep puncture site dry today and tomorrow. Ok to remove dressing tomorrow e vening and shower. No soaking of puncture site for five days. RESUME PLAVIX today Discharge Disposition: HOME SELF-CARE
== END 2020-07-07 14:16 | disposition home or self-care (01) ==
LOC: CATHCVL 07:52
PROVIDERS: ATTEND Surgery
DX: I70.213 Atherosclerosis of native arteries of extremities with intermittent claudication, bilateral legs (principal); I70.8 Atherosclerosis of other arteries; T82.856A Stenosis of peripheral vascular stent, initial encounter; I77.89 Other specified disorders of arteries and arterioles; I25.10 Atherosclerotic heart disease of native coronary artery without angina pectoris; I10 Essential (primary) hypertension; E78.5 Hyperlipidemia, unspecified; I71.4 Abdominal aortic aneurysm, without rupture; G47.30 Sleep apnea, unspecified; Z79.02 Long term (current) use of antithrombotics/antiplatelets; Z79.82 Long term (current) use of aspirin; Z88.8 Allergy status to other drugs, medicaments and biological substances; Z98.890 Other specified postprocedural states
CPT/HCPCS: 37221; 75625; 75716; 84132; C1894 ×2; C1769 ×6; C1876; C1887; C1725; J2250; J2001; J1644; Q9967

== ENCOUNTER → 2021-04-05 | Outpatient (CLI) | payer MEDICARE ==
--- NOTE | 2021-04-06 08:36 | CT ---
EXAMINATION TYPE: CT angio abd aorta w/Runoff DATE OF EXAM: 04/05/2021 COMPARISON: Angiogram 07/07/2020 HISTORY: Claudication, pt c/o numbness in lower extremities, LT side worse. Femoral stenting CT DLP: 1862 mGycm, Automated Exposure Control for Dose Reduction was Utilized. CONTRAST: CT scan of the abdomen and pelvis, outflow vasculature is performed without oral and without and with IV Contrast, patient injected with 125 mL of Isovue 370. Three-dimensional reconstructions were perf ormed on an alternate workstation. FINDINGS: There is intracardiac lead present. Suspect coronary artery calcifications, no pleural moi cardial effusion. Aorta shows atheromatous change, postop changes are noted status post suspected infrarenal aortic byp ass. Superior mesenteric artery and celiac axis are patent, inferior mesenteric artery occluded proxi tylor due to the graft, fills retrograde. Renal arteries are patent. At the level of the distal nativ e abdominal aorta at the level of the renal arteries there is some luminal plaque suspected, there is extension into the proximal aspect of the graft, the lumen of the graft is diminished by approximate ly 50% or greater in transverse dimension, increasing as it extends distally. The level the proximal left common iliac artery there is occlusion, atheromatous changes are present bilaterally at the orig ins of the common iliac arteries, dense calcification present at the origin of the external iliac art lukas on the right with markedly narrowed lumen. Dense iliac calcifications are present, enhancement is not seen definitively along the external iliac arteries, internal iliac arteries centrally. There is a femoral-femoral bypass graft present. The external iliac artery on the right enhances distally pos sibly via retrograde flow, pelvic collaterals are present bilaterally. Deep femoral arteries show enh ancement. Common femoral artery enhances on the right, there is enhancement of a femoral-femoral bypa ss graft extending towards the left. There is an additional femoral-femoral bypass graft which is bee n partially resected and is occluded. Superficial femoral arteries are occluded. Reconstitution of th e popliteal arteries is noted above the level of the knees, more proximally on the left than on the r ight. Trifurcation vasculature enhances bilaterally, peroneal artery not well seen distally on the ri ght or on the left. Anterior tibial artery enhances less well on the left than on the right, there ma y be segmental enhancement or atheroma. Subcutaneous edema changes are present somewhat distally with in the legs. LUNG BASES: No significant abnormality is appreciated. LIVER/GB: Small focal area of enhancement is present within the liver adjacent to the gallbladder dion suring approximately 12 mm which is indeterminate. Some gallstones are present. Axial image 27 shows a low dense focus within the liver measuring 19 mm, there are additional smaller subcentimeter low de nse foci which may represent cysts. PANCREAS: No significant abnormality is seen. SPLEEN: No significant abnormality is seen. ADRENALS: No significant abnormality is seen. KIDNEYS: Low dense foci associated with the left kidney likely represent cysts. BOWEL: No significant abnormality is seen. PROSTATE/SEMINAL VESICLES: Enlarged. LYMPH NODES: No greater than 1cm abdominal or pelvic lymph nodes are appreciated. OSSEOUS STRUCTURES: Degenerative disc changes, facet arthropathy change present in the lower lumbar s pine especially.. OTHER: No significant additional abnormality is seen. IMPRESSION: Peripheral vascular occlusive disease as described. Aortic stent shows only partial enhan cement, there may be luminal plaque present. Indeterminate liver lesion could represent flash fill he mangioma, follow-up could BE performed to assess for stability.
== END | disposition home or self-care (01) ==
LOC: RADCTMAIN 14:19
PROVIDERS: ATTEND Surgery
DX: I99.8 Other disorder of circulatory system (principal); I74.3 Embolism and thrombosis of arteries of the lower extremities
CPT/HCPCS: 82565; 84520; 75635; 36415; Q9967

== ENCOUNTER → 2021-05-20 | Outpatient (CLI) | payer MEDICARE ==
[2021-05-20 11:18] LABS: Magnesium 2.1 mg/dL (1.6-2.3); Potassium 4.2 mmol/L (3.5-5.1)
== END | disposition home or self-care (01) ==
LOC: LABPAT 09:58
PROVIDERS: ATTEND Internal Medicine Interventional Cardiology
DX: Z01.812 Encounter for preprocedural laboratory examination (principal); I47.2 Ventricular tachycardia
CPT/HCPCS: 80051; 83735

== ENCOUNTER → 2021-10-15 | Outpatient (CLI) | payer MEDICARE ==
[2021-10-15 14:18] LABS: African American GFR (CKD) 69.1 (60.0-200.0); Anion Gap 10.3 mmol/L (10.00-18.00); BUN/Creat Ratio 15.42 Ratio (12.00-20.00); Blood Urea Nitrogen 18.5 mg/dL (9.0-27.0); Calcium 9.6 mg/dL (8.7-10.3); Carbon Dioxide 26.7 mmol/L (20.0-27.5); Non-African American GFR(CKD) 59.6 (60.0-200.0); Potassium 4.3 mmol/L (3.5-5.5)
== END | disposition home or self-care (01) ==
LOC: LABWHC1 10:38
PROVIDERS: ATTEND Internal Medicine Interventional Cardiology
DX: I50.9 Heart failure, unspecified (principal); I25.10 Atherosclerotic heart disease of native coronary artery without angina pectoris
CPT/HCPCS: 36415; 80048

== ENCOUNTER → 2022-04-04 | Outpatient (CLI) | payer MEDICARE ==
[2022-04-04 14:40] LABS: Basophils # (A) 0.08 X 10*3/uL (0.00-0.10); Eosinophils # (A) 0.21 X 10*3/uL (0.04-0.35); Eosinophils % (A) 2.7 %; HCT 45.5 % (39.6-50.0); HGB 14.9 g/dL (13.0-17.0); Immature Grans, Automated 0.4 %; Lymphocytes # (A) 1.65 X 10*3/uL (0.90-5.00); Lymphocytes % (A) 21.3 %; MCH 29.3 pg (27.0-32.0); MCHC 32.7 g/dL (32.0-37.0); MCV 89.4 fL (80.0-97.0); Mean Platelet Volume 9.3 fL (9.5-12.2); Monocytes # (A) 0.96 X 10*3/uL (0.20-1.00); Monocytes % (A) 12.4 %; NRBC Per 100 WBC 0 /100 WBCS (0.0-0.0); Neutrophils % (A) 62.2 %; Platelet Count 256 X 10*3/uL (140-440); RBC 5.09 X 10*6/uL (4.40-5.60); RDW 13.9 % (11.5-14.5); WBC 7.73 X 10*3/uL (4.50-10.00)
[2022-04-04 14:51] LABS: African American GFR (CKD) 68.6 (60.0-200.0); Anion Gap 9.1 mmol/L (10.00-18.00); BUN/Creat Ratio 19.08 Ratio (12.00-20.00); Blood Urea Nitrogen 22.9 mg/dL (9.0-27.0); Carbon Dioxide 26.5 mmol/L (20.0-27.5); Non-African American GFR(CKD) 59.2 (60.0-200.0); Potassium 5.5 mmol/L (3.5-5.5)
== END | disposition home or self-care (01) ==
LOC: LABWHC1 10:04
PROVIDERS: ATTEND Internal Medicine Interventional Cardiology
DX: I25.10 Atherosclerotic heart disease of native coronary artery without angina pectoris (principal)
CPT/HCPCS: 36415; 80048; 85025

== ENCOUNTER 2022-04-19 05:33 | Day surgery (SDC) | payer MEDICARE ==
[2022-04-15 11:12] VITALS: BMI 28.3
[2022-04-19] MEDS ORDERED: NITROGLYCERIN SL TABS 0.4 MG TAB SUBLINGUAL PRN (05:54)
[2022-04-19] MEDS ORDERED: ALPRAZolam 0.5 MG TAB PO PRN (05:54)
[2022-04-19] MEDS ORDERED: SODIUM CHLORIDE 0.9% 1,000 ML in EMPTY BAG 1 BAG IV ONE (05:54)
[2022-04-19] MEDS ORDERED: ALPRAZolam 0.25 MG TAB PO PRN (05:54)
[2022-04-19] MEDS ORDERED: SODIUM CHLORIDE 0.9% 1,000 ML IV ONE (06:05)
[2022-04-19 06:28] VITALS: RESP 18; TEMP 98.2
[2022-04-19] MEDS ORDERED: ASPIRIN 325 MG TAB PO ONE (07:00)
[2022-04-19] MEDS ORDERED: VERAPAMIL 2.5 MG/ML 2 ML AMP ONE (07:13)
[2022-04-19] MEDS ORDERED: HEPARIN SODIUM 1,000 UN/ML (10ML VL) ONE (07:46)
[2022-04-19] MEDS ORDERED: MIDAZOLAM 2 MG/2 ML VIAL IVP ONE ×2 (07:54→07:58)
[2022-04-19] MEDS ORDERED: LIDOCAINE 1% INJ 10MG/ML (30 ML VIAL-PF) SQ ONE ×2 (07:57→08:00)
[2022-04-19] MEDS ORDERED: VERAPAMIL SYRINGE (5 MG/10 ML) INTRAARTER ONE ×2 (08:03→08:16)
[2022-04-19] MEDS ORDERED: HEPARIN SODIUM 1,000 UN/ML (10ML VL) IVP ONE ×2 (08:03)
[2022-04-19] MEDS ORDERED: IOPAMIDOL-370 100ML BTL INJ ONE (08:17)
[2022-04-19] MEDS ORDERED: SODIUM CHLORIDE 0.9% 1,000 ML IV SCH (08:45)
[2022-04-19 11:58] VITALS: BP 138/74; PULSE 63
--- NOTE | 2022-04-19 20:09 | CC ---
CARDIAC CATHETERIZATION REPORT PROCEDURE PERFORMED: Left heart catheterization and coronary angiography next. PERFORMED BY: Dr. Payal Caba. ANESTHESIA: Moderate conscious sedation time was 22 minutes. The patient was administered Versed. Oxygen saturation, hemodynamics, and EKG were monitored closely. CLINICAL INFORMATION: Mr. Pelon Herrera is a 72-year-old gentleman with a known history of ischemic cardiomyopathy, previous inferior AL in 2001 with stenting of RCA. Since then, the vessel had occluded. He also has peripheral vascular disease, underwent intervention of the right coronary artery, SFA, details unavailable. However, he has claudication symptoms and diminished pulses. Because of symptoms of exertional shortness of breath and chest tightness with a new area of reversible defect in the anterior wall, he was advised to have a cardiac catheterization. He is known to have an RCA occlusion in the past with stenting. PROCEDURE NOTE: Under local anesthesia and strict aseptic precautions, a 6-Kinyarwanda introducer was placed in the right radial artery. Using a JL3.5 and JR4 catheters, I performed coronary angiography, and the same right catheter was used to check LV pressure, but LV gram was not performed. The sheath was taken out and TR band applied as per protocol. The patient was sent to the room in a stable condition. Findings were reviewed with the patient and . We will pursue medical therapy for now and explore the option of high-risk PCI with Impella support, but because of peripheral vascular disease, I will seek input from Dr. Gage and Dr. Whalen. CARDIAC CATHETERIZATION FINDINGS: The left ventricular end-diastolic pressure was about 12 to 13 mmHg without any gradient across the aortic valve. CORONARY ANGIOGRAPHY FINDINGS: Right coronary artery: Very dominant vessel, totally occluded in the proximal portion, which was stented without much antegrade flow. Left main coronary artery: Short, calcified vessel. No significant disease. Bifurcates into LAD and circumflex. Left anterior descending coronary artery: Good-caliber vessel. Proximally, has no significant disease. It gives off a septal branch, where there was heavy calcification. The second septal branch also has calcification, then there is 80% to 90% lesion, heavily calcified, gives off a diagonal branch from the lesion and several branches. The vessel runs distally supplying a sizable amount of myocardium. LAD therefore has heavily calcified mid lesion of 80%, where branches come off from it including a diagonal and septal branch. These branches are small in caliber, but LAD is of good caliber and this is the culprit lesion seen on the stress test. Left posterior circumflex coronary artery: This is a nondominant vessel that gives off a high first obtuse marginal, almost looks like a ramus, which has minor irregularities and another branch comes off from this high obtuse marginal, which has 80% lesion. This is a smaller branch. Circumflex after the high obtuse marginal has diffuse disease and total occlusion without much flow in the distal posterolateral branch. Circumflex appears to be a good caliber and good distribution vessel, but totally occluded in the midportion with patent high obtuse marginal that has minor irregularities. Left ventriculogram was not performed. FINAL IMPRESSION: This patient has a right-dominant system, total occlusion of RCA, which was stented in the past in the setting of an acute AL in 2001. He has a new lesion in the mid LAD of about 80% with heavy calcification. Circumflex is totally occluded in the midportion, high obtuse marginal has minor irregularities and the small secondary branch has disease. Filling pressures are normal. There was no gradient across the aortic valve. RECOMMENDATIONS: Patient will benefit from high-risk PCI of LAD, but he has significant peripheral vascular disease of lower extremities. We will pursue medical therapy and explore options for high-risk PCI. I explained this to the patient and . He will be discharged today. I will seek input from Dr. Gage and Dr. Whalen to review the peripheral angiograms and make further recommendations. MMODL / IJN: [id number] /
== END 2022-04-19 13:00 | disposition home or self-care (01) ==
LOC: CATHCVL 05:33
PROVIDERS: ATTEND Internal Medicine Interventional Cardiology
DX: I42.9 Cardiomyopathy, unspecified (principal); I25.2 Old myocardial infarction; R06.02 Shortness of breath; I73.9 Peripheral vascular disease, unspecified; R94.30 Abnormal result of cardiovascular function study, unspecified; Z95.810 Presence of automatic (implantable) cardiac defibrillator; Z98.61 Coronary angioplasty status
CPT/HCPCS: 93458; 87635; 99152; C1769 ×2; C1894; J2250; J2001; J1644; Q9967

== ENCOUNTER → 2022-04-26 | Outpatient (CLI) | payer MEDICARE ==
[2022-04-26 10:50] LABS: HGB 14.8 gm/dL (13.0-17.5); MCH 28.9 pg (25.0-35.0); MCHC 32.2 g/dL (31.0-37.0); MCV 89.6 fL (80.0-100.0); Mean Platelet Volume 7.5; Platelet Count 229 k/uL (150-450); RBC 5.13 m/uL (4.30-5.90); WBC 7.3 k/uL (3.8-10.6)
[2022-04-26 10:56] LABS: Potassium 4.7 mmol/L (3.5-5.1)
== END | disposition home or self-care (01) ==
LOC: LABPAT 10:15
PROVIDERS: ATTEND Internal Medicine Interventional Cardiology
DX: Z01.812 Encounter for preprocedural laboratory examination (principal); I25.5 Ischemic cardiomyopathy; R06.02 Shortness of breath
CPT/HCPCS: 80051; 82565; 84520; 85027

== ENCOUNTER 2022-04-29 09:11 | Day surgery (SDC) | payer MEDICARE ==
[2022-04-27 13:37] VITALS: BMI 28.3
[~2022-04-29 09:11] MED LIST changes: +ALPRAZolam 0.5 MG TAB PO PRN; -ASPIRIN 325 MG TAB PO PRN; +ASPIRIN 325 MG TAB PO STA; +HEPARIN SODIUM,PORCINE 10,000 UNIT in SODIUM CHLORIDE 0.9% 1,000 ML IRRIGATION PRN; +HEPARIN SODIUM,PORCINE 2,500 UNIT in SODIUM CHLORIDE 0.9% 250 ML IRRIGATION PRN; +NITROGLYCERIN SL TABS 0.4 MG TAB SUBLINGUAL PRN; -SODIUM CHLORIDE 0.9% 1,000 ML in EMPTY BAG 1 BAG IV ONE; +SODIUM CHLORIDE 0.9% 1,000 ML in EMPTY BAG 1 BAG IV SCH
[2022-04-29] MEDS ORDERED: VERAPAMIL 2.5 MG/ML 2 ML AMP ONE (10:23)
[2022-04-29] MEDS ORDERED: HEPARIN SODIUM 1,000 UN/ML (10ML VL) ONE (10:37)
[2022-04-29] MEDS ORDERED: MIDAZOLAM 2 MG/2 ML VIAL IVP ONE (10:59)
[2022-04-29] MEDS ORDERED: LIDOCAINE 1% INJ 10MG/ML (30 ML VIAL-PF) SQ ONE (11:06)
[2022-04-29] MEDS ORDERED: VERAPAMIL SYRINGE (5 MG/10 ML) INTRAARTER ONE (11:07)
[2022-04-29] MEDS ORDERED: HEPARIN SODIUM 1,000 UN/ML (10ML VL) IVP ONE ×2 (11:10→11:45)
[2022-04-29] MEDS ORDERED: IOPAMIDOL-370 100ML BTL INJ ONE ×2 (12:01→13:08)
[2022-04-29] MEDS ORDERED: PHENYLEPHRINE-0.9% NACL SYG 1,000 MCG/10 ML SYRINGE IV ONE ×2 (12:39→13:03)
[2022-04-29] MEDS ORDERED: HYDROmorphone 0.5 MG/0.5 ML SYRINGE IVP ONE (12:59)
[2022-04-29] MEDS ORDERED: CLOPIDOGREL 75 MG TAB ONE (13:06)
[2022-04-29] MEDS ORDERED: CLOPIDOGREL 75 MG TAB PO ONE (13:07)
[2022-04-29] MEDS ORDERED: NITROGLYCERIN SL TABS 0.4 MG TAB SUBLINGUAL PRN (13:31)
[2022-04-29] MEDS ORDERED: SODIUM CHLORIDE 0.9% 1,000 ML IV SCH (13:45)
[2022-04-29] MEDS: METOPROLOL TARTRATE 50 MG TAB PO SCH (19:48)
[2022-04-29] MEDS: cilostazoL 100 MG TAB PO SCH (19:48)
[2022-04-29] MEDS: ATORVASTATIN 40 MG TAB PO SCH (19:48)
--- NOTE | 2022-04-30 01:12 | CC ---
CARDIAC CATHETERIZATION REPORT PROCEDURE PERFORMED: PTCA and stenting of mid LAD with 2 drug-eluting stents. PERFORMED BY: Dr. Payal Caba. SEDATION: Moderate conscious sedation time was 125 minutes. The patient was administered Versed and Dilaudid. Oxygen saturation, hemodynamics, and EKG were monitored closely. CLINICAL INFORMATION: Mr. Pelon Herrera is a 72-year-old gentleman with a history of nonischemic cardiomyopathy and severe peripheral vascular disease. In 2008, he also had an abdominal aortic aneurysm resection as well and he has a fem-fem bypass with previous stenting of the SFA on the right. He had an inferior wall myocardial infarction, underwent stenting of the RCA in the past in 2001, but since then, it has been totally occluded. Because of anginal symptoms and a new abnormal stress test with anterior wall ischemia, I performed a cardiac cath last week, which revealed that he had a total occlusion of the dominant RCA, mid LAD had 80% heavily calcified lesion, circumflex was occluded in the mid portion, and high obtuse marginal has had moderate irregularities. His filling pressures were acceptable, no gradient. He was advised PCI of LAD without Impella because Impella could not be put from the femoral approach given his peripheral vascular disease. High-risk PCI was advised without Impella support. The patient understood the rationale, risks, benefits, options, as did the and wished to proceed. PROCEDURE NOTE: Under strict aseptic precautions and local anesthesia, a 6-Kiswahili introducer was placed in the right radial artery. I used a JL3.5 guide catheter and a Runthrough wire. I had difficulty with the run-through wire. I switched over to a whisper wire. With this, I crossed the lesion and wire was kept distally. I tried to pre-dilate the lesion, but I had considerable difficulty. Proximal to the lesion, there was heavy calcification. I used a 3.0 balloon and dilated that area, which was an NC Trek balloon. I then switched over after some efforts to XB LAD 3.0 guide catheter with a whisper wire, a long wire, and I used a 45-degree SuperCross to get across the lesion. I also used a GuideLiner to help guide support. After multiple efforts, a 1.5 x 15 mm Sapphire balloon was used to dilate the lesion at the tightest spot. Proximal to it, I used a 3.0 balloon NC Trek. Eventually, I deployed a 3.25 x 12 mm NC Trek balloon in the proximal portion of the calcified segment. Beyond this stent, 2.0 Wilmer[place] stent was deployed. Considerable difficulty was encountered because of calcification and tortuosity. Following this, I had difficulty post dilating the Grupo stent, which was deployed at 14 atmospheres. After some difficulty, I tried to use a madeline wire, but I had difficulty advancing the madeline wire because the wire kept going behind the stent. I then went back and dilated after some effort. I took the GuideLiner out and without the GuideLiner with a 2.5 NC Trek balloon and more deep throating of the guide catheter, I was able to advance a 2.5 NC Trek balloon into the Wilmerding stent and expanded this to 14 atmospheres. Excellent angiographic result was achieved. There was a transient occlusion of the second septal branch, which came back. The patient was pain free, hemodynamically stable. Excellent VICTORINO-3 flow was noted and the distal flow in the vessel was remarkably good. Results were discussed with the patient and . A TR band was applied and saturation of the fingers of the right hand was 95%. Results were discussed with the patient and . He will be on aspirin and Plavix without interruption for 12 months. He will be discharged later tomorrow or day after based on his clinical course. This was a very technically difficult procedure, but eventual result was very gratifying, but I could not advance more than a 2.5 balloon into the distal stent. MMODL / IJN: [id number] /
--- NOTE | 2022-04-30 06:49 | P.PN ---
Subjective Progress Note Date: 04/30/22 Principal diagnosis: CAD and status post PCI This is a 72-year-old gentleman with a past medical history significant for CAD as well as ischemic cardiomyopathy status post AICD as well as hypertension and dyslipidemia who was admitted to the hospital yesterday and underwent PCI of the LAD by Dr. Caba was a complex procedure was an excellent angiographic results by the end The patient was seen this morning. He is asymptomatic. He is currently stable with only 1 measurement of pressure being on the higher side. We'll continue monitor the blood pressure. The right radial site is soft and nontender and without any bruises. The patient reports no pain in the chest or shortness of breath or dizziness or lightheadedness or any feeling of heart racing or fluttering. He is on dual antiplatelet therapy along with high intensity statin. I would advise monitor the patient for additional 24-hour giving the complexity of his procedure yesterday and obtain a CBC and BMP this morning and possible discharge 24-hour Objective - Vital Signs Vital signs: Vital Signs Temp 97.9 F 04/30/22 04:00 Pulse 72 04/30/22 04:00 Resp 17 04/30/22 04:00 BP 163/81 04/30/22 04:00 Pulse Ox 96 04/30/22 04:00 FiO2 Intake & Output 04/29/22 04/29/22 04/30/22 06:59 18:59 06:59 Intake Total 200 Balance 200 Weight 73 kg Intake: IV 200 Other: # Voids 1 1 - Constitutional General appearance: Present: no acute distress - Respiratory Respiratory: bilateral: CTA - Cardiovascular Rhythm: regular Heart sounds: normal: S1, S2 Assessment and Plan Assessment: Assessment CAD status post PCI of the LAD Ischemic cardiomyopathy Lower extremities PAD Hypertension Dyslipidemia Plan Continue the current medical regimen Monitor the patient for additional 24 hours Obtain CBC and BMP Aggressive blood pressure control Follow-up with the patient
[2022-04-30] MEDS: FUROSEMIDE 20 MG TAB PO SCH (08:20)
[2022-04-30] MEDS: LOSARTAN 50 MG TAB PO SCH (08:20)
[2022-04-30] MEDS: cilostazoL 100 MG TAB PO SCH ×2 (08:20→20:53)
[2022-04-30] MEDS: CLOPIDOGREL 75 MG TAB PO SCH (08:21)
[2022-04-30] MEDS: METOPROLOL TARTRATE 50 MG TAB PO SCH ×2 (08:21→20:53)
[2022-04-30 10:04] LABS: Basophils % (A) 1 %; Eosinophils # (A) 0.2 k/uL (0-0.7); Eosinophils % (A) 3 %; HCT 43.3 % (39.0-53.0); HGB 13.8 gm/dL (13.0-17.5); Lymphocytes # (A) 0.8 k/uL (1.0-4.8); Lymphocytes % (A) 13 %; MCH 28.9 pg (25.0-35.0); MCHC 31.8 g/dL (31.0-37.0); MCV 90.7 fL (80.0-100.0); Mean Platelet Volume 7.7; Monocytes # (A) 0.4 k/uL (0-1.0); Monocytes % (A) 6 %; Neutrophils # (A) 4.9 k/uL (1.3-7.7); Neutrophils % (A) 77 %; Platelet Count 211 k/uL (150-450); RBC 4.77 m/uL (4.30-5.90); WBC 6.4 k/uL (3.8-10.6)
[2022-04-30 10:33] LABS: African American GFR (CKD) >90 (>60 ml/min/1.73 sqM); Anion Gap 11 mmol/L; Blood Urea Nitrogen 17 mg/dL (9-20); Calcium 8.8 mg/dL (8.4-10.2); Carbon Dioxide 23 mmol/L (22-30); Chloride 104 mmol/L (98-107); Glucose 155 mg/dL (74-99); Non-African American GFR(CKD) 85 (>60 ml/min/1.73 sqM); Potassium 3.9 mmol/L (3.5-5.1); Sodium 138 mmol/L (137-145)
[2022-04-30] MEDS: ASPIRIN 81 MG PO SCH (20:53)
[2022-04-30] MEDS: ATORVASTATIN 40 MG TAB PO SCH (20:53)
--- NOTE | 2022-05-01 06:48 | P.DS ---
Providers Attending physician: Shani Caba Primary care physician: Brittany Bennett [facility] Hospital Course: This is a 72-year-old gentleman with coronary artery disease and ischemic cardiomyopathy as well as hypertension and dyslipidemia who was admitted to the hospital 2 days ago and underwent PCI of the LAD by Dr. Caba He was seen this morning. He is asymptomatic. He is hemodynamically stable. The patient would like to go home. The patient will be discharged on dual antiplatelet therapy. He is intolerant statin. Apparently he tried multiple statins in the past and he was incoherent. Plan - Discharge Summary Discharge Rx Participant: No New Discharge Prescriptions: Continue Nitroglycerin Sl Tabs [Nitrostat] 0.4 mg SUBLINGUAL Q5M PRN PRN Reason: Chest Pain Losartan Potassium 100 mg PO DAILY Clopidogrel [Plavix] 75 mg PO DAILY Aspirin 81 mg PO DAILY Metoprolol Tartrate [Lopressor] 100 mg PO BID cilostazoL [Pletal] 100 mg PO BID Furosemide [Lasix] 20 mg PO DAILY Discharge Medication List Aspirin 81 mg PO DAILY 11/27/15 [History] Clopidogrel [Plavix] 75 mg PO DAILY 11/27/15 [History] Losartan Potassium 100 mg PO DAILY 11/27/15 [History] Nitroglycerin Sl Tabs [Nitrostat] 0.4 mg SUBLINGUAL Q5M PRN 11/27/15 [History] Metoprolol Tartrate [Lopressor] 100 mg PO BID 07/06/20 [History] Furosemide [Lasix] 20 mg PO DAILY 04/15/22 [History] cilostazoL [Pletal] 100 mg PO BID 04/15/22 [History] Follow up Appointment(s)/Referral(s): Shani Caba MD [STAFF PHYSICIAN] - 1 Week
[2022-05-01] MEDS: METOPROLOL TARTRATE 50 MG TAB PO SCH (08:11)
[2022-05-01] MEDS: FUROSEMIDE 20 MG TAB PO SCH (08:11)
[2022-05-01] MEDS: LOSARTAN 50 MG TAB PO SCH (08:11)
[2022-05-01] MEDS: cilostazoL 100 MG TAB PO SCH (08:11)
[2022-05-01] MEDS: ASPIRIN 81 MG PO SCH (08:11)
[2022-05-01] MEDS: CLOPIDOGREL 75 MG TAB PO SCH (08:11)
[2022-05-01 08:20] VITALS: BP 145/70; PULSE 81; RESP 16; TEMP 97.7
== END 2022-05-01 10:23 | disposition home health service (06) ==
LOC: CATHCVL 09:11 → 3SCARD 13:08 → CATHCVL 05-01 10:23
PROVIDERS: ATTEND Internal Medicine Interventional Cardiology
DX: I25.5 Ischemic cardiomyopathy (principal); I25.10 Atherosclerotic heart disease of native coronary artery without angina pectoris; I10 Essential (primary) hypertension; E78.5 Hyperlipidemia, unspecified; Z95.5 Presence of coronary angioplasty implant and graft; Z95.810 Presence of automatic (implantable) cardiac defibrillator; Z79.02 Long term (current) use of antithrombotics/antiplatelets; Z79.82 Long term (current) use of aspirin; Z79.899 Other long term (current) drug therapy; I25.119 Atherosclerotic heart disease of native coronary artery with unspecified angina pectoris; I25.2 Old myocardial infarction; I25.82 Chronic total occlusion of coronary artery; I42.8 Other cardiomyopathies; I73.9 Peripheral vascular disease, unspecified
CPT/HCPCS: 80048; 85025; C9600; C1769 ×4; C1887 ×5; C1894; C1725 ×7; C1874 ×2; J2250; J2001; J1644; J2370; J1170; Q9967

== ENCOUNTER → 2022-07-29 | Outpatient (CLI) | payer MEDICARE | END | disposition home or self-care (01) | LOC: LABWHC1 14:15 | PROVIDERS: ATTEND Nurse Practitioner Adult Health | DX: I47.20 Ventricular tachycardia, unspecified (principal) ==

== ENCOUNTER → 2022-08-03 | Outpatient (CLI) | payer MEDICARE ==
[2022-08-03 19:49] LABS: African American GFR (CKD) 71.5 (60.0-200.0); Anion Gap 11.6 mmol/L (10.00-18.00); BUN/Creat Ratio 15.52 Ratio (12.00-20.00); Calcium 9.9 mg/dL (8.7-10.3); Carbon Dioxide 29.2 mmol/L (20.0-27.5); Magnesium 2.2 mg/dL (1.5-2.4); Non-African American GFR(CKD) 61.7 (60.0-200.0); Potassium 4.6 mmol/L (3.5-5.5)
== END | disposition home or self-care (01) ==
LOC: LABWHC1 11:48
PROVIDERS: ATTEND Nurse Practitioner Adult Health
DX: I47.20 Ventricular tachycardia, unspecified (principal)
CPT/HCPCS: 36415; 80048; 83735

== ENCOUNTER → 2023-08-23 | Outpatient (CLI) | payer MEDICARE ==
[2023-08-24 02:59] LABS: ALT 59 U/L (10-49); AST 42 U/L (14-35); Albumin 4.1 g/dL (3.8-4.9); Albumin/Globulin Ratio 1.32 Ratio (1.60-3.17); Alkaline Phosphatase 76 U/L (41-126); BUN/Creat Ratio 14.82 Ratio (12.00-20.00); Blood Urea Nitrogen 25.2 mg/dL (9.0-27.0); Calcium 9.3 mg/dL (8.7-10.3); Chloride 105 mmol/L (96-109); Globulin 3.1 g/dL (1.6-3.3); Glucose 75 mg/dL (70-110); Potassium 4.2 mmol/L (3.5-5.5); Sodium 146 mmol/L (135-145); Total Bilirubin 0.4 mg/dL (0.3-1.2); Total Protein 7.2 g/dL (6.2-8.2)
== END | disposition home or self-care (01) ==
LOC: LABWHC1 14:12
PROVIDERS: ATTEND Nurse Practitioner
DX: I10 Essential (primary) hypertension (principal); I25.10 Atherosclerotic heart disease of native coronary artery without angina pectoris
CPT/HCPCS: 36415; 80053; 84443

== ENCOUNTER → 2024-02-15 | Outpatient (CLI) | payer MEDICARE ==
[2024-02-15 18:46] LABS: ALT 50 U/L (10-49); AST 35 U/L (14-35); Albumin 4.2 g/dL (3.8-4.9); Alkaline Phosphatase 72 U/L (41-126); Blood Urea Nitrogen 27.3 mg/dL (9.0-27.0); Calcium 9.1 mg/dL (8.7-10.3); Carbon Dioxide 25.1 mmol/L (21.6-31.8); Chloride 99 mmol/L (96-109); Globulin 2.8 g/dL (1.6-3.3); Glucose 87 mg/dL (70-110); Potassium 4.6 mmol/L (3.5-5.5); Sodium 137 mmol/L (135-145); T4, Free (Free Thyroxine) 1.94 ng/dL (0.80-1.80); Total Bilirubin 0.6 mg/dL (0.3-1.2)
== END | disposition home or self-care (01) ==
LOC: LABWHC1 13:16
PROVIDERS: ATTEND Internal Medicine Interventional Cardiology
DX: I25.5 Ischemic cardiomyopathy (principal)
CPT/HCPCS: 36415; 80053; 84439; 84443

== ENCOUNTER → 2024-09-16 | Outpatient (CLI) | payer MEDICARE ==
[2024-09-16 14:21] LABS: African American GFR (CKD) 58 (>60 ml/min/1.73 sqM); Blood Urea Nitrogen 28 mg/dL (9-20); Non-African American GFR(CKD) 50 (>60 ml/min/1.73 sqM)
--- NOTE | 2024-09-17 07:45 | CT ---
EXAMINATION TYPE: CT angio abd aorta w/Runoff DATE OF EXAM: 09/16/2024 COMPARISON: Prior CTA with runoff April 05, 2021 HISTORY: Peripheral vascular disease CT DLP: 1788.8 mGycm, Automated Exposure Control for Dose Reduction was Utilized. CONTRAST: CTA scan of the abdomen and pelvis with bilateral lower extremity runoff is performed without oral an d without and with IV Contrast, patient injected with 80 mL of Isovue 370. Three-D reconstructed imag es are created on an independent workstation and reviewed. FINDINGS: VASCULAR: Patent celiac artery and SMA. There are 2 patent renal arteries identified bilaterally whic h is normal variant. Patent CHIRAG not well seen. There is surgical change infrarenal abdominal aorta wi th graft redemonstrated. There is focal prominence at the proximal anastomosis measuring 3.5 cm AP di ameter on axial image 69 series 5 redemonstrated. There is severe peripheral plaque in the abdominal aortic graft redemonstrated similar to prior. Lumen diameter narrowing greater than 50% of portion si milar to prior. Persistent complete occlusion of the left common iliac artery into the external iliac artery. Persistent severe calcified plaque along the iliac arteries bilaterally. Presence of severe calcified plaque makes accurate evaluation suboptimal. There are persistent 2 femoral-femoral bypass grafts one which is occluded and 1 which remains patent. Surgical changes in the bilateral groin sarah on are redemonstrated. There is complete occlusion of the right superficial femoral artery into the proximal popliteal arter y similar to prior. There is some reconstitution near the level of the knee joint. There is bifurcati on and trifurcation below the knee joint with 2 vessel flow mid to distal leg noted. Complete occlusion of the left superficial femoral artery is redemonstrated. There is some reconstitu tion of proximal popliteal artery level similar to prior. There are areas of significant stenosis and /or occlusion along the popliteal artery, for reference axial image 315 series 5. There is bifurcatio n and trifurcation seen. There is two-vessel flow in the mid leg with multifocal areas of significant stenosis. There is single vessel flow in the distal leg. LUNG BASES: Coronary artery stents are partially imaged. There is partial visualization of right-side d pacemaker leads. LIVER/GB: Tiny dependent gallstones. Occasional thin-walled cysts throughout the liver redemonstrated . Largest lesion measures 1.9 cm long axis axial series 3 image 14 and similar to prior. PANCREAS: No significant abnormality is seen. SPLEEN: No significant abnormality is seen. ADRENALS: No significant abnormality is seen. KIDNEYS: There are a few thin-walled cysts scattered throughout the upper pole of the left kidney. No hydronephrosis seen bilaterally. BOWEL: Small sized hiatal hernia. Some distal colonic diverticula. No CT evidence for acute diverticu litis. PROSTATE/SEMINAL VESICLES: Slightly enlarged prostate consistent with BPH is redemonstrated. LYMPH NODES: No greater than 1cm abdominal or pelvic lymph nodes are appreciated. OSSEOUS STRUCTURES: Multilevel vacuum disc phenomenon and disc space narrowing in the lumbar spine. Lower extremities: Degenerative changes in both knees redemonstrated position product of osteoarthrit is. Moderate subcutaneous edema is seen in the mid to distal legs left greater than right. OTHER: Persistent moderate to large sized fat-containing right inguinal hernia. IMPRESSION: Persistent bilateral long segment occlusion of the superficial femoral arteries. Persiste nt poor small vessel arterial flow to the distal lower extremities more prominent on the left. [facility], , 09/17/2024 7:43 AM
== END | disposition home or self-care (01) ==
LOC: RADCTMAIN 13:27
PROVIDERS: ATTEND Surgery
DX: I73.9 Peripheral vascular disease, unspecified (principal)
CPT/HCPCS: 82565; 84520; 75635; 36415; Q9967